=== PATIENT | male | born 1945 | race Caucasian/White ===

== ENCOUNTER 2018-08-29 12:26 | Observation (INO) ==
[2018-08-29] MEDS ORDERED: 0.9 % Sodium Chloride 1,000 ML IVC ONE (12:27)
--- NOTE | 2018-08-29 12:29 | Emergency Department Note ---
Disposition Clinical Impression: Hyperglycemia, Generalized weakness Disposition: Admitted As Inpatient Condition: Fair Referrals: NONE,PCP [Non-Partnered Physician] - Forms: ED Satisfaction Letter, Work/School Release Time of Disposition: 13:09 Weakness HPI - General Chief complaint: ED General Medical Stated complaint: WEAKNESS Time Seen by Provider: 08/29/18 12:26 Source: patient, EMS Mode of arrival: EMS Limitations: no limitations Nursing Notes Reviewed: Yes Vital Signs Reviewed: Yes - History of Present Illness HPI Narrative: Patient reports a general weakness and some dizziness with standing and walking. This is been going on for 2 weeks and he has been having difficulty with 24- hour care of his live-in partner who has dementia area reports that he has not had much time to eat or get all of his medicines. He has not been able to leave to get medical care. He called his sister who is out of state to see if she co uld come and help. Sister called job and family services to do a home check and found that they were not able to care for themselves at this time and has had both transported in for evaluation. Patient denies any pain. He denies headache, visual changes or difficulty with mentation or speech. Denies cough or shortness of breath. Denies abdominal pain, nausea, vomiting or diarrhea. He is not having localized weakness. He does report increased thirst but denies increased urinary frequency. The weather has been hot but they do have air conditioning. He states he just is too weak to take care at himself and his partner. Indicates that he is entirely worn out, sleep deprived is not getting adequate food or medicines at this point. Pt Subjective Complaint: generalized weakness/fatigue Onset (ago): week(s) (2) - Related Data Home Medications Medication Instructions Recorded Confirmed Insulin DETEMIR [Levemir] 60 unit SQ HS 12/11/14 12/31/14 Insulin ASPART [NovoLOG] 20 unit SQ TIDWM 12/31/14 12/31/14 Previous Rx's Medication Instructions Recorded Aspirin 81 mg PO DAILY #30 tab.chew 12/14/14 Atorvastatin [Lipitor] 80 mg PO HS #30 tablet 12/14/14 Clopidogrel [Plavix] 75 mg PO DAILY #30 tablet 12/14/14 Lisinopril [Zestril] 2.5 mg PO DAILY #30 tablet 12/14/14 Nitroglycerin 0.4 mg SL Q5MIN PRN #30 tab.subl 12/14/14 Aspirin Enteric Coated [Aspirin EC] 81 mg PO DAILY tablet. 01/07/15 Metoprolol [Lopressor] 12.5 mg PO BID #30 tablet 01/07/15 OxyCODONE/APAP 5/325 [Percocet 1 each PO Q4HR PRN #50 tablet 01/07/15 5/325] Allergies Allergy/AdvReac Type Severity Reaction Status Date / Time No Known Allergies Allergy Verified 12/11/14 15:10 All systems ED: reviewed and negative except as stated. Past Medical History - Past Medical History Attestation: Yes The following information was validated with the patient. Source: patient, old records reviewed, nursing notes reviewed Medical history: Reports: coronary artery disease, diabetes, hyperlipidemia. Denies: hypertension, thyroid disease Surgical history: Reports: appendectomy, coronary bypass (CABG) (2014), orthopedic, other Psychiatric history: Reports: no psych history - Social History Smoking Status: Never smoker Smokeless Tobacco Status: No Alcohol use: Reports: none Drug use: Reports: none Physical Exam - General Limitations: no limitations General appearance: alert, in no apparent distress - Head Head exam: atraumatic, normocephalic, normal inspection - Eye Eye exam: Present: normal appearance, PERRL, EOMI. Absent: scleral icterus, conjunctival injection - ENT ENT exam: normal exam, normal oropharynx, mucous membranes moist - Neck Neck exam: Present: normal inspection, full ROM, trachea midline - Chest Chest inspection: Present: normal inspection, symmetric chest wall rise - Respiratory Respiratory exam: Present: normal lung sounds bilaterally. Absent: respiratory distress, wheezes, prolonged expiratory phase - Cardiovascular Cardiovascular exam: Present: regular rate, normal rhythm, normal heart sounds. Absent: tachycardia - Abdominal Exam Abdominal exam: Present: soft, Non-Tender, normal bowel sounds. Absent: tenderness, distention, guarding, rebound, rigidity, mass - Extremities Exam Extremities exam: Present: normal inspection, full ROM, normal capillary refill. Absent: tenderness, pedal edema, calf tenderness - Expanded Lower Extremity Exam Neurovascular/Tendon exam: Present: normal capillary refill. Absent: motor deficit, sensory deficit, tendon deficit Gait: not tested/not observed - Back Exam Back exam: Present: normal inspection, full ROM. Absent: tenderness - Neurological Exam Neurological exam: Present: alert, oriented X3, CN II-XII intact. Absent: motor sensory deficit - Psychiatric Psychiatric exam: Present: normal affect, normal mood. Absent: agitated, anxious - Skin Skin exam: Present: warm, dry, intact, normal color, pallor. Absent: cyanosis, diaphoresis Course Course Narrative: Patient has history of generalized weakness. His thirsty and is started on some oral fluids as well as IV fluids. His Accu-Chek is 540 and insulin has been administered. Basic laboratories and EKG have been ordered as well as a urinalysis to evaluate for causes of weakness. He will likely need observation in the hospital with addiction social worker consultation upon completion of testing. 1315: With return of all testing except urinalysis, care is discussed with Dr. Romano and verbal orders have been obtained for his continued observation, hydration and following of his diabetic status. Vital Signs Temperature 99.1 F 08/29/18 12:35 Pulse Rate 89 08/29/18 12:35 Respiratory Rate 22 08/29/18 12:35 Blood Pressure 149/95 08/29/18 12:35 O2 Sat by Pulse Oximetry 99 08/29/18 12:35 Temperature 99.1 F 08/29/18 12:35 Pulse Rate 96 08/29/18 13:19 Respiratory Rate 22 08/29/18 13:19 Blood Pressure 158/104 08/29/18 13:19 O2 Sat by Pulse Oximetry 99 08/29/18 13:19 Oxygen Delivery Oxygen Delivery Room Air Weakness - Differential Diagnosis Differential Diagnosis: Likely: anemia, sepsis/infection, dehydration, metabolic - Medical Records Medical records reviewed: Yes I reviewed the patient's medical records. - Lab Data Lab results reviewed: Yes I reviewed the patient's lab results. Result diagrams: 08/29/18 12:39 08/29/18 12:39 Lab Results 08/29/18 08/29/18 08/29/18 Range/Units 12:39 12:39 12:39 WBC 4.6 (4.3-11.1) K/mcL RBC 4.38 (4.19-5.50) M/mcL Hgb 13.2 (12.9-16.9) g/dL Hct 39.2 (37.5-50.1) % MCV 89.5 (83.0-100.0) fL MCH 30.1 (28.0-33.3) pg MCHC 33.7 (31.6-35.5) g/dL RDW 11.9 (11.5-14.5) % Plt Count 232 (140-400) K/mcL MPV 10.7 (9.4-12.4) fL Immature Gran % 0.2 (0-4) % Seg Neutrophils % 70.5 % Lymphocytes % 18.9 % Monocytes % 9.3 % Eosinophils % 0.7 % Basophils % 0.4 % Neutrophils # 3.2 (1.6-8.9) K/mcL Lymphocytes # 0.9 (0.6-4.6) K/mcL Monocytes # 0.4 (0.0-1.3) K/mcL Eosinophils # 0.0 (0.0-0.6) K/mcL Basophils # 0.0 (0.0-0.2) K/mcL VBG pH (7.32-7.42) pH Units VBG pCO2 (41-51) mmHg VBG pO2 (25-50) mmHg VBG HCO3 (21-27) mEq/L Sodium 135 L (136-145) mEq/L Potassium 4.3 (3.5-5.1) mEq/L Chloride 99 (98-107) mEq/L Carbon Dioxide 23 (23-29) mEq/L BUN 34 H (8-23) mg/dL Creatinine 1.14 (0.70-1.30) mg/dL Est GFR ( Amer) > 60 (> 60) Est GFR (Non-Af Amer) > 60 (> 60) BUN/Creatinine Ratio 30 H (6-26) Glucose 577 H* (70-105) mg/dL Calculated Osmolality 314 H (280-300) Lactic Acid 1.0 (0.5-2.2) mmol/L Calcium 8.9 (8.6-10.3) mg/dL Total Bilirubin 0.9 (0.3-1.0) mg/dL AST 11 L (13-39) Units/L ALT 11 (7-52) Units/L Alkaline Phosphatase 58 (34-104) Units/L Troponin I < 0.03 (< 0.04) ng/mL Serum Total Protein 6.3 L (6.4-8.9) g/dL Albumin 3.6 (3.5-5.7) g/dL Globulin 2.7 (2.4-3.5) g/dL Albumin/Globulin Ratio 1.3 (1.1-2.2) Beta-Hydroxybutyric Acd (0.02-0.27) mmol/L 08/29/18 08/29/18 Range/Units 12:39 12:46 WBC (4.3-11.1) K/mcL RBC (4.19-5.50) M/mcL Hgb (12.9-16.9) g/dL Hct (37.5-50.1) % MCV (83.0-100.0) fL MCH (28.0-33.3) pg MCHC (31.6-35.5) g/dL RDW (11.5-14.5) % Plt Count (140-400) K/mcL MPV (9.4-12.4) fL Immature Gran % (0-4) % Seg Neutrophils % % Lymphocytes % % Monocytes % % Eosinophils % % Basophils % % Neutrophils # (1.6-8.9) K/mcL Lymphocytes # (0.6-4.6) K/mcL Monocytes # (0.0-1.3) K/mcL Eosinophils # (0.0-0.6) K/mcL Basophils # (0.0-0.2) K/mcL VBG pH 7.30 L (7.32-7.42) pH Units VBG pCO2 44 (41-51) mmHg VBG pO2 30 (25-50) mmHg VBG HCO3 22 (21-27) mEq/L Sodium (136-145) mEq/L Potassium (3.5-5.1) mEq/L Chloride (98-107) mEq/L Carbon Dioxide (23-29) mEq/L BUN (8-23) mg/dL Creatinine (0.70-1.30) mg/dL Est GFR ( Amer) (> 60) Est GFR (Non-Af Amer) (> 60) BUN/Creatinine Ratio (6-26) Glucose (70-105) mg/dL Calculated Osmolality (280-300) Lactic Acid (0.5-2.2) mmol/L Calcium (8.6-10.3) mg/dL Total Bilirubin (0.3-1.0) mg/dL AST (13-39) Units/L ALT (7-52) Units/L Alkaline Phosphatase (34-104) Units/L Troponin I (< 0.04) ng/mL Serum Total Protein (6.4-8.9) g/dL Albumin (3.5-5.7) g/dL Globulin (2.4-3.5) g/dL Albumin/Globulin Ratio (1.1-2.2) Beta-Hydroxybutyric Acd > 2.00 H (0.02-0.27) mmol/L - EKG Data EKG attestation: Yes I reviewed and interpreted this EKG. EKG shows normal: sinus rhythm, axis, intervals, QRS complexes, ST-T waves Rate: normal (90) Interpretation: no acute changes, nonspecific ST-T wave changes
[2018-08-29] MEDS ORDERED: Insulin Regular, Human 100 UNIT/ML SQ ONE (12:42)
[2018-08-29 12:46] LABS: Basophils % 0.4 %; Eosinophils % 0.7 %; Hematocrit 39.2 % (37.5-50.1); Hemoglobin 13.2 g/dL (12.9-16.9); Immature Granulocytes % 0.2 % (0-4); Lymphocytes # 0.9 K/mcL (0.6-4.6); Lymphocytes % 18.9 %; Mean Corpuscular HGB Conc 33.7 g/dL (31.6-35.5); Mean Corpuscular Hemoglobin 30.1 pg (28.0-33.3); Mean Corpuscular Volume 89.5 fL (83.0-100.0); Mean Platelet Volume 10.7 fL (9.4-12.4); Monocytes # 0.4 K/mcL (0.0-1.3); Monocytes % 9.3 %; Neutrophils # 3.2 K/mcL (1.6-8.9); Platelet Count 232 K/mcL (140-400); Red Blood Count 4.38 M/mcL (4.19-5.50); Red Cell Distribution Width 11.9 % (11.5-14.5); Segmented Neutrophils % 70.5 %; White Blood Count 4.6 K/mcL (4.3-11.1)
[2018-08-29 12:49] LABS: VBG HCO3 22 mEq/L (21-27); VBG PCO2 44 mmHg (41-51); VBG PO2 30 mmHg (25-50)
[2018-08-29 13:05] LABS: Alanine Aminotransferase 11 Units/L (7-52); Albumin 3.6 g/dL (3.5-5.7); Albumin/Globulin Ratio 1.3 (1.1-2.2); Alkaline Phosphatase 58 Units/L (34-104); Aspartate Amino Transferase 11 Units/L (13-39); BUN/Creatinine Ratio 30 (6-26); Bilirubin,Total 0.9 mg/dL (0.3-1.0); Blood Urea Nitrogen 34 mg/dL (8-23); Calcium 8.9 mg/dL (8.6-10.3); Carbon Dioxide 23 mEq/L (23-29); Chloride 99 mEq/L (98-107); Globulin 2.7 g/dL (2.4-3.5); Glucose 577 mg/dL (70-105); Osmolality,Calculated 314 (280-300); Potassium 4.3 mEq/L (3.5-5.1); Sodium 135 mEq/L (136-145); Total Protein 6.3 g/dL (6.4-8.9); eGFR For African Americans > 60 (> 60); eGFR For Non-African Americans > 60 (> 60)
[2018-08-29 13:08] LABS: Troponin I < 0.03 ng/mL (< 0.04)
[2018-08-29] MEDS ORDERED: 0.9 % Sodium Chloride 1,000 ML IVC SCH ×3 (14:00→17:01)
[2018-08-29 14:06] LABS: Bilirubin,Urine Negative (Negative); Blood,Urine Trace-intact (Negative); Clarity,Urine Slightly Cloudy (Clear); Color,Urine Yellow (Yellow); Glucose,Urine (UA) 500 mg/dL (Normal); Ketones,Urine 40 mg/dL (Negative); Leukocyte Esterase,Urine Small (Negative); Nitrite,Urine Negative (Negative); Protein,Urine Trace mg/dL (Neg-Trace); Urobilinogen,Urine Normal (Normal)
[2018-08-29 14:13] LABS: Bacteria,Urine Moderate per hpf (None-Few); RBC,Urine 0-3 per hpf (0-3); Squamous Epithelial Cell,Urine Many per lpf (None-Few); WBC,Urine 30-50 per hpf (0-3)
[2018-08-29] MEDS ORDERED: cefTRIAXone 2,000 MG in Water for inj. (sterile) 20 ML IVPB ONE (15:56)
--- NOTE | 2018-08-29 16:13 | Electrocardiograph Report ---
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
[2018-08-29] MEDS ORDERED: D5% in Water 1,000 ML IVC PRN (17:01)
[2018-08-29] MEDS ORDERED: MOM Conc 10 ML UD.LIQ PO PRN (17:01)
[2018-08-29] MEDS ORDERED: Dextrose Gel 15 GM/37.5 ML TUBE PO PRN ×2 (17:01)
[2018-08-29] MEDS ORDERED: Mag Hydrox/Al Hydrox/Simeth 30 ML UDC PO PRN (17:01)
[2018-08-29] MEDS ORDERED: *HR* Dextrose 50 % in Water (Vial) 50 ML VIAL IVP PRN (17:01)
[2018-08-29] MEDS ORDERED: Naloxone 0.4 MG/ML INJ IVP PRN (17:01)
[2018-08-29] MEDS ORDERED: Ondansetron ODT 4 MG TAB.RAPDIS SL PRN (17:01)
[2018-08-29] MEDS: Insulin LISPRO 300 UNITS/3 ML VIAL SQ SCH (17:39)
[2018-08-29 21:20] LABS: Estimated Average Glucose 392 mg/dl
[2018-08-30] MEDS: Insulin LISPRO 300 UNITS/3 ML VIAL SQ SCH ×4 (07:57→21:36)
[2018-08-30 07:58] LABS: BUN/Creatinine Ratio 25 (6-26); Blood Urea Nitrogen 20 mg/dL (8-23); Calcium 8.4 mg/dL (8.6-10.3); Carbon Dioxide 26 mEq/L (23-29); Chloride 100 mEq/L (98-107); Glucose 274 mg/dL (70-105); Osmolality,Calculated 290 (280-300); Potassium 3.8 mEq/L (3.5-5.1); Sodium 134 mEq/L (136-145); eGFR For African Americans > 60 (> 60); eGFR For Non-African Americans > 60 (> 60)
--- NOTE | 2018-08-30 16:17 | Internal Med History&Physical ---
Date of Encounter: 08/30/18 Time of Encounter: 15:50 Assessment and Plan (1) Hyperglycemia Current visit: Yes Status: Acute Blood sugar was 577 MG/DL in emergency room. He has been started on IV fluids and Accu-Cheks with SSI. Basal insulin will also be given. (2) Diabetes mellitus Current visit: No Status: Chronic Poorly controlled. Hemoglobin A1c was 15.3% in emergency room. Rx as above. 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 (4) CAD (coronary artery disease) Current visit: No Status: Acute Continue aspirin, Plavix, Lipitor, and metoprolol. Qualifiers: Coronary Disease-Associated Artery/Lesion type: [place] artery [place] vs. transplanted heart: [place] heart Associated angina: without angina Qualified Code(s): I25.10 - Atherosclerotic heart disease of [place] coronary artery without angina pectoris (5) Generalized weakness Current visit: Yes Status: Acute PT and OT evaluations have been ordered. Internal Medicine - H&P: HPI Chief complaint: Weakness Admitted From: Emergency Dept Plans for Post Hospital Care: Home History of present illness: Mr. Estrada is a 72 year old male who came to emergency room stating he has had progressive weakness over the past 2 weeks. He denies fevers chills vomiting diarrhea pain or cough. He states his oral intake has been poor. He was evaluated in emergency room and was found to have significant hyperglycemia with acute renal insufficiency. He was admitted to Medr floor for ongoing care needs. He states he feels slightly improved at the present time but still feels weak. He was diagnosed with DM 2 approximately 2007. He is on Lipitor but denies hyperlipidemia. He denies known thyroid disease. Past Med Surg Social Fam HX - Past Medical History Medical history: coronary artery disease, diabetes, hyperlipidemia Additional medical history: see attached records Psychiatric history: no psych history - Past Surgical History Surgical History: appendectomy, coronary bypass (CABG), orthopedic, other - Social History Smoking Status: Never smoker Smokeless Tobacco Status: No Alcohol use: none Drug use: none - Family History Father Living Status: Hx Family Cardiac Disorders: Yes (MOTHER) Hx Family Respiratory Disorders: No Hx Family Cancer: No Hx Family GI Disorders: No Hx Family Endocrine Disorder: No Hx Family Neuromuscular Disorders: No Hx Family Neurologic Disorders: No Hx Family HEENT Disorders: No Hx Family Autoimmune Disorders: No Internal Medicine - H&P: Meds Insulin DETEMIR [Levemir] 60 unit SQ HS 12/11/14 [History] Aspirin 81 mg PO DAILY #30 tab.chew 12/14/14 [Rx] Atorvastatin [Lipitor] 80 mg PO HS #30 tablet 12/14/14 [Rx] Clopidogrel [Plavix] 75 mg PO DAILY #30 tablet 12/14/14 [Rx] Lisinopril [Zestril] 2.5 mg PO DAILY #30 tablet 12/14/14 [Rx] Nitroglycerin 0.4 mg SL Q5MIN PRN #30 tab.subl 12/14/14 [Rx] Insulin ASPART [NovoLOG] 20 unit SQ TIDWM 12/31/14 [History] Aspirin Enteric Coated [Aspirin EC] 81 mg PO DAILY tablet. 01/07/15 [Rx] Metoprolol [Lopressor] 12.5 mg PO BID #30 tablet 01/07/15 [Rx] OxyCODONE/APAP 5/325 [Percocet 5/325] 1 each PO Q4HR PRN #50 tablet 01/07/15 [ Rx] Allergy/AdvReac Type Severity Reaction Status Date / Time No Known Allergies Allergy Verified 12/11/14 15:10 All Systems PM: A 10-system review of systems was performed and is negative for pertinent findings except as documented above in the HPI. Review of systems: Gen.: He states his weight has decreased approximately 30 pounds in the past 18 months with most of the weight loss occurring in the last 3 months. He states his appetite and oral intake have not changed significantly until 2 weeks ago. Cardiovascular: He has history of hypertension and known ASHD status post GA approximately 2009. He reports he had 5 stents placed in the past. After stent placement he reports he had 5 vessel CABG 12/31/2014 with SOTO to LAD, SVG to PDA and posterior lateral branch of RCA, and SVG to intermediate branch and OMB of circumflex. He has dyspnea on exertion. He denies heart failure DVT or pulmonary embolus. Echocardiogram 12/11/2014 showed LVEF of 55% with no significant valvular abnormalities. Interventricular septum and posterior wall thickness measurements were normal at 1.00 cm each. E/A ratio was 0.9. Respiratory: He is a lifelong nonsmoker and denies chronic lung disease. GI: He denies disorders of his liver gallbladder or exocrine pancreas : He denies hematuria dysuria or kidney stones Neurologic: He denies large distribution strokes or seizures. Endocrine: He was diagnosed with DM 2 approximately 2007. He denies thyroid disease. He is on Lipitor for secondary prevention from ASHD but denies known hyperlipidemia. Hematology/oncology: He denies blood disorders cancers or anemia Psychiatric: He denies anxiety depression or mental health issues [place] skeletal: He denies arthritis gout or other bone joint or muscle disorders. - Constitutional Vitals: Temp Pulse Resp BP Pulse Ox 98.2 F 81 16 162/90 98 08/30/18 15:07 08/30/18 15:07 08/30/18 15:07 08/30/18 15:07 08/30/18 15:07 Exam: Gen.: He is a well-developed well-nourished male resting comfortably in bed who appears in no severe distress at present time HEENT: Head is atraumatic and normocephalic. Eyes: EOMI. There is no scleral icterus. Mouth: Mucosa is moist. Neck: Supple and nontender. There is no thyromegaly or adenopathy noted. Heart: Regular without murmurs gallops or ectopics Lungs: No wheezes or crackles are heard. Abdomen: Soft and nontender. No masses or guarding are noted. Extremities: There is no cyanosis edema or clubbing noted. Dorsalis pedis and posterior tibial pulses are trace to 1+ palpable bilaterally. He has several shallow ulcers with eschars on his fingers and lower legs. Neurologic: Mental status: He is talkative and a fair to good historian. He does not remember some details of his past history. Cranial nerves: Smile is symmetric. Forehead wrinkles bilaterally. Tongue protrudes midline. EOMI. Motor: There is no pronator drift. Cerebellar: Finger to nose is intact porsche aterally. Skin: Warm and dry Internal Med - H&P Results - Labs CBC & Chem 7: 08/29/18 12:39 08/30/18 07:08 Labs: BMP 08/30/18 07:08 Sodium 134 L Potassium 3.8 Chloride 100 Carbon Dioxide 26 BUN 20 Creatinine 0.81 Glucose 274 H Calcium 8.4 L - ABG Interpretation ABG results: 08/29/18 12:46 VBG pH 7.30 L VBG pCO2 44 VBG pO2 30 VBG HCO3 22
[2018-08-30] MEDS: Insulin DETEMIR 100 UNIT/ML X5UNITS SQ SCH (21:32)
[2018-08-31 06:01] LABS: Basophils % 0.6 %; Eosinophils # 0.1 K/mcL (0.0-0.6); Eosinophils % 2.7 %; Hematocrit 37.9 % (37.5-50.1); Hemoglobin 13.2 g/dL (12.9-16.9); Immature Granulocytes % 0.4 % (0-4); Lymphocytes # 1.2 K/mcL (0.6-4.6); Lymphocytes % 23.9 %; Mean Corpuscular HGB Conc 34.8 g/dL (31.6-35.5); Mean Corpuscular Hemoglobin 30.3 pg (28.0-33.3); Mean Corpuscular Volume 87.1 fL (83.0-100.0); Mean Platelet Volume 11.2 fL (9.4-12.4); Monocytes # 0.5 K/mcL (0.0-1.3); Neutrophils # 3.2 K/mcL (1.6-8.9); Platelet Count 193 K/mcL (140-400); Red Blood Count 4.35 M/mcL (4.19-5.50); Red Cell Distribution Width 11.7 % (11.5-14.5); Segmented Neutrophils % 62.4 %; White Blood Count 5.2 K/mcL (4.3-11.1)
[2018-08-31 06:28] LABS: BUN/Creatinine Ratio 18 (6-26); Blood Urea Nitrogen 15 mg/dL (8-23); Calcium 8.9 mg/dL (8.6-10.3); Carbon Dioxide 30 mEq/L (23-29); Chloride 99 mEq/L (98-107); Glucose 225 mg/dL (70-105); Osmolality,Calculated 288 (280-300); Potassium 4.3 mEq/L (3.5-5.1); Sodium 135 mEq/L (136-145); eGFR For African Americans > 60 (> 60); eGFR For Non-African Americans > 60 (> 60)
[2018-08-31 06:56] LABS: Thyroid Stimulating Hormone 0.877 mcIU/mL (0.340-5.600)
[2018-08-31] MEDS: Insulin LISPRO 300 UNITS/3 ML VIAL SQ SCH ×4 (08:26→21:03)
[2018-08-31] MEDS: Insulin DETEMIR 100 UNIT/ML X5UNITS SQ SCH ×2 (08:26→21:03)
--- NOTE | 2018-08-31 12:00 | Internal Med Progress Note ---
Date of Encounter: 08/31/18 Time of Encounter: 11:54 - Assessment and plan (1) Hyperglycemia Current Visit: Yes Status: Acute Assessment and plan: August 31. Blood sugars significantly improved. Home medication list reviewed showing Levemir 60 units daily at bedtime. Increase Levemir dose to 15 units twice a day and continue Accu-Cheks with SSI. (2) Diabetes mellitus Current Visit: No Status: Chronic Assessment and plan: August 31. 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 TSH was normal at 0.877. CT of chest, abdomen, and pelvis showed no worrisome pathology. (4) CAD (coronary artery disease) Current Visit: No Status: Acute Assessment and plan: August 31. Continue aspirin, Plavix, Lipitor, and metoprolol. Qualifiers: Coronary Disease-Associated Artery/Lesion type: [place] artery [place] vs. transplanted heart: [place] heart Associated angina: without angina Qualified Code(s): I25.10 - Atherosclerotic heart disease of [place] coronary artery without angina pectoris (5) Generalized weakness Current Visit: Yes Status: Acute Assessment and plan: August 31. Continue PT/OT intervention. (6) Hypertension Current Visit: Yes Status: Chronic Assessment and plan: August 31. Home medication list reviewed. Restart metoprolol and lisinopril but at higher doses. Qualifiers: Hypertension type: essential hypertension Qualified Code(s): I10 - Esse ntial (primary) hypertension - Subjective Interval history: August 31. He has no new complaints and feels better. - Constitutional Vitals: Temp Pulse Resp BP Pulse Ox 98.5 F 80 18 156/101 99 08/31/18 06:54 08/31/18 06:54 08/31/18 06:54 08/31/18 06:54 08/31/18 06:54 Exam: He is resting comfortably in bed and appears in no acute distress. His affect is overall cheerful. I reviewed his medications, lab results, and CT report. Internal Medicine: Result - Labs CBC & Chem 7: 08/31/18 05:22 08/31/18 05:22 Labs: Short CBC 08/31/18 Range/Units 05:22 WBC 5.2 (4.3-11.1) K/mcL Hgb 13.2 (12.9-16.9) g/dL Hct 37.9 (37.5-50.1) % Plt Count 193 (140-400) K/mcL Neutrophils # 3.2 (1.6-8.9) K/mcL BMP 08/31/18 05:22 Sodium 135 L Potassium 4.3 Chloride 99 Carbon Dioxide 30 H BUN 15 Creatinine 0.83 Glucose 225 H Calcium 8.9 - Impressions Impressions Abdomen/Pelvis CT 08/30/18 17:22 IMPRESSION: 1. No definite acute process within the chest, abdomen, or pelvis. 2. Stable mild chronic elevation of the left hemidiaphragm with associated mild compressive atelectasis within the lingula and left lower lobe. 3. No definite acute process within the abdomen or pelvis. 4. Nonspecific 1.4 cm exophytic soft tissue attenuation nodular lesion off the posterior aspect of the left kidney upper pole, most likely a benign hyperdense cyst. However, suggest further characterization with a pre and postcontrast renal mass protocol CT or MRI study. 5. Cholelithiasis with mild gallbladder distention. Additionally, there is mild nonspecific distention of the common bile duct, without demonstrable cause. If there is a history of elevated LFTs, consider further characterization with a follow-up MRCP study. 6. Mild prostatomegaly. D/ / 08/30/2018 19:48:10 Aaron Uriostegui MD / [email or web address] Interpreting Provider: Aaron Uriosetgui MD Chest CT 08/30/18 17:22 IMPRESSION: 1. No definite acute process within the chest, abdomen, or pelvis. 2. Stable mild chronic elevation of the left hemidiaphragm with associated mild compressive atelectasis within the lingula and left lower lobe. 3. No definite acute process within the abdomen or pelvis. 4. Nonspecific 1.4 cm exophytic soft tissue attenuation nodular lesion off the posterior aspect of the left kidney upper pole, most likely a benign hyperdense cyst. However, suggest further characterization with a pre and postcontrast renal mass protocol CT or MRI study. 5. Cholelithiasis with mild gallbladder distention. Additionally, there is mild nonspecific distention of the common bile duct, without demonstrable cause. If there is a history of elevated LFTs, consider further characterization with a follow-up MRCP study. 6. Mild prostatomegaly. D/ / 08/30/2018 19:48:10 Aaron Uriostegui MD / tre Interpreting Provider: Aaron Uriostegui MD Consult Discharge Plan - Plan Referrals: Vane Muniz, BOX FABRICATOR [Primary Care Provider] - 1 week
[2018-08-31] MEDS ORDERED: Insulin DETEMIR 100 UNIT/ML X5UNITS SQ SCH (21:00)
[2018-09-01] MEDS: Insulin LISPRO 300 UNITS/3 ML VIAL SQ SCH ×4 (07:46→19:35)
[2018-09-01] MEDS: Insulin DETEMIR 100 UNIT/ML X5UNITS SQ SCH ×2 (09:22→19:35)
--- NOTE | 2018-09-01 10:00 | Internal Med Progress Note ---
Date of Encounter: 09/01/18 Time of Encounter: 09:50 - Assessment and plan (1) Hyperglycemia Current Visit: Yes Status: Acute Assessment and plan: August 31. Blood sugars significantly improved. Home medication list reviewed showing Levemir 60 units daily at bedtime. Increase Levemir dose to 15 units twice a day and continue Accu-Cheks with SSI. September 01. Blood sugars further improved. Recheck labs in a.m. Anticipate discha rge home tomorrow if stable. (2) Diabetes mellitus Current Visit: No Status: Chronic Assessment and plan: August 31. As above Qualifiers: Diabetes mellitus type: type 2 Diabetes mellitus care home insulin use: with care home use Diabetes mellitus complication status: without complication Qualified Code(s): E11.9 - Type 2 diabetes mellitus without complications; Z79.4 - meterman (current) use of insulin (3) Weight loss Current Visit: Yes Status: Acute Assessment and plan: August 31. TSH was normal at 0.877. CT of chest, abdomen, and pelvis showed no worrisome pathology. (4) CAD (coronary artery disease) Current Visit: No Status: Acute Assessment and plan: August 31. Continue aspirin, Plavix, Lipitor, and metoprolol. Qualifiers: Coronary Disease-Associated Artery/Lesion type: [place] artery [place] vs. transplanted heart: [place] heart Associated angina: without angina Qualified Code(s): I25.10 - Atherosclerotic heart disease of [place] coronary artery without angina pectoris (5) Generalized weakness Current Visit: Yes Status: Acute Assessment and plan: August 31. Continue PT/OT intervention. (6) Hypertension Current Visit: Yes Status: Chronic Assessment and plan: August 31. Home medication list reviewed. Restart metoprolol and lisinopril but at higher doses. September 01. Blood pressures improved. Continue higher dose metoprolol and lisinopril. Qualifiers: Hypertension type: essential hypertension Qualified Code(s): I10 - Essential (primary) hypertension - Subjective Interval history: August 31. He has no new complaints and feels better. September 01. He has no complaints. Nursing staff reports he had verbal disagreement in his room last evening with his sister causing his significant other to become upset requiring a room change for her. He is now more calm and voices no concerns. - Constitutional Vitals: Temp Pulse Resp BP Pulse Ox 98.5 F 65 17 131/84 96 07/04/19 06:56 09/01/18 06:56 09/01/18 06:56 09/01/18 06:56 09/01/18 06:56 Exam: He is resting comfortably in bed and appears in no acute distress. He is appropriate in conversation. His affect is overall cheerful. I reviewed his medications and lab results. Internal Medicine: Result - Labs CBC & Chem 7: 08/31/18 05:22 08/31/18 05:22 - Impressions Impressions Abdomen/Pelvis CT 08/30/18 17:22 IMPRESSION: 1. No definite acute process within the chest, abdomen, or pelvis. 2. Stable mild chronic elevation of the left hemidiaphragm with associated mild compressive atelectasis within the lingula and left lower lobe. 3. No definite acute process within the abdomen or pelvis. 4. Nonspecific 1.4 cm exophytic soft tissue attenuation nodular lesion off the posterior aspect of the left kidney upper pole, most likely a benign hyperdense cyst. However, suggest further characterization with a pre and postcontrast renal mass protocol CT or MRI study. 5. Cholelithiasis with mild gallbladder distention. Additionally, there is mild nonspecific distention of the common bile duct, without demonstrable cause. If there is a history of elevated LFTs, consider further characterization with a follow-up MRCP study. 6. Mild prostatomegaly. D/ / 08/30/2018 19:48:10 Aaron Uriostegui MD / tre Interpreting Provider: Aaron Uriostegui MD Chest CT 08/30/18 17:22 IMPRESSION: 1. No definite acute process within the chest, abdomen, or pelvis. 2. Stable mild chronic elevation of the left hemidiaphragm with associated mild compressive atelectasis within the lingula and left lower lobe. 3. No definite acute process within the abdomen or pelvis. 4. Nonspecific 1.4 cm exophytic soft tissue attenuation nodular lesion off the posterior aspect of the left kidney upper pole, most likely a benign hyperdense cyst. However, suggest further characterization with a pre and postcontrast renal mass protocol CT or MRI study. 5. Cholelithiasis with mild gallbladder distention. Additionally, there is mild nonspecific distention of the common bile duct, without demonstrable cause. If there is a history of elevated LFTs, consider further characterization with a follow-up MRCP study. 6. Mild prostatomegaly. D/ / 08/30/2018 19:48:10 Aaron Uriostegui MD / tre Interpreting Provider: Aaron Uriostegui MD Consult Discharge Plan - Plan Referrals: Vane Muniz, [facility] [Primary Care Provider] - 1 week
[2018-09-02 05:58] LABS: Basophils % 0.5 %; Eosinophils # 0.1 K/mcL (0.0-0.6); Eosinophils % 2.3 %; Hematocrit 38.2 % (37.5-50.1); Hemoglobin 12.8 g/dL (12.9-16.9); Immature Granulocytes % 0.2 % (0-4); Lymphocytes # 1.4 K/mcL (0.6-4.6); Lymphocytes % 23.9 %; Mean Corpuscular HGB Conc 33.5 g/dL (31.6-35.5); Mean Corpuscular Hemoglobin 29.8 pg (28.0-33.3); Mean Corpuscular Volume 88.8 fL (83.0-100.0); Mean Platelet Volume 11.2 fL (9.4-12.4); Monocytes # 0.6 K/mcL (0.0-1.3); Monocytes % 10.3 %; Neutrophils # 3.8 K/mcL (1.6-8.9); Platelet Count 187 K/mcL (140-400); Red Cell Distribution Width 12.2 % (11.5-14.5); Segmented Neutrophils % 62.8 %
[2018-09-02 06:24] LABS: BUN/Creatinine Ratio 20 (6-26); Blood Urea Nitrogen 18 mg/dL (8-23); Calcium 8.8 mg/dL (8.6-10.3); Carbon Dioxide 30 mEq/L (23-29); Chloride 102 mEq/L (98-107); Glucose 165 mg/dL (70-105); Osmolality,Calculated 292 (280-300); Potassium 4.2 mEq/L (3.5-5.1); Sodium 138 mEq/L (136-145); eGFR For African Americans > 60 (> 60); eGFR For Non-African Americans > 60 (> 60)
[2018-09-02] MEDS: Insulin LISPRO 300 UNITS/3 ML VIAL SQ SCH ×2 (08:06→11:19)
[2018-09-02] MEDS: Insulin DETEMIR 100 UNIT/ML X5UNITS SQ SCH (09:23)
[2018-09-02 10:17] VITALS: BP 97/69
--- NOTE | 2018-09-02 11:16 | Discharge Summary ---
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 transplanted heart: [place] heart Associated angina: without angina Qualified Code(s): I25.10 - Atherosclerotic heart disease of [place] coronary artery w ithout angina pectoris (5) Generalized weakness Priority: Secondary Status: Acute (6) Hypertension Priority: Secondary Status: Chronic Qualifiers: Hypertension type: essential hypertension Qualified Code(s): I10 - Essential (primary) hypertension Hospital course: Mr. Estrada is a 72 year old male who came to emergency room stating he has had progressive weakness over the past 2 weeks. He denies fevers chills vomiting diarrhea pain or cough. He states his oral intake has been poor. He was evaluated in emergency room and was found to have significant hyperglycemia with acute renal insufficiency. He was admitted to [facility] floor for ongoing care needs. Initial orders were written by the emergency room physician. I saw him on August 30 and performed a history and physical. He was given IV fluids, basal insulin, and Accu-Cheks with SSI. Blood sugar showed improvement and ketosis resolved. He will be given reduced dose of Levemir at 15 units HS and start Novolin 70/30 20 units every morning to control daytime blood sugar elevations. His PCP can monitor and continue to adjust regimen as needed. Hemoglobin A1c returned significantly above desirable level at 15.3%. He admitted he was not compliant consistently with diet and insulin regimen. Home health services will be ordered to assist in monitoring. TSH returned normal at 0.877. Blood pressure returned to satisfactory range. He was given higher dose medication during hospitalization but will return to home doses at discharge. He will be discharged home today and follow with his PCP Darling Muniz CNP within 1 week. Home health services will be ordered. - Time Spent with Patient Total time spent providing and/or coordinating discharge services: - Discharge Medications Prescriptions: New Insulin NPH Hum/Reg Insulin Hm [Humulin 70/30 Kwikpen] 20 unit SQ QAM #1 insuln.pen Insulin DETEMIR [Levemir] 15 unit SQ HS #1 [id number] Continued Nitroglycerin 0.4 mg SL Q5MIN PRN #30 tab.subl PRN Reason: Chest Pain Aspirin 81 mg PO DAILY #30 tab.chew Atorvastatin [Lipitor] 80 mg PO HS #30 tablet Clopidogrel [Plavix] 75 mg PO DAILY #30 tablet Lisinopril [Zestril] 2.5 mg PO DAILY #30 tablet Aspirin Enteric Coated [Aspirin EC] 81 mg PO DAILY tablet. Metoprolol [Lopressor] 12.5 mg PO BID #30 tablet OxyCODONE/APAP 5/325 [Percocet 5/325] 1 each PO Q4HR PRN #50 tablet PRN Reason: Pain Discontinued Insulin ASPART [NovoLOG] 20 unit SQ TIDWM Insulin DETEMIR [Levemir] 60 unit SQ HS Home Medications: Aspirin 81 mg PO DAILY #30 tab.chew 12/14/14 [Rx] Atorvastatin [Lipitor] 80 mg PO HS #30 tablet 12/14/14 [Rx] Clopidogrel [Plavix] 75 mg PO DAILY #30 tablet 12/14/14 [Rx] Lisinopril [Zestril] 2.5 mg PO DAILY #30 tablet 12/14/14 [Rx] Nitroglycerin 0.4 mg SL Q5MIN PRN #30 tab.subl 12/14/14 [Rx] Aspirin Enteric Coated [Aspirin EC] 81 mg PO DAILY tablet. 01/07/15 [Rx] Metoprolol [Lopressor] 12.5 mg PO BID #30 tablet 01/07/15 [Rx] OxyCODONE/APAP 5/325 [Percocet 5/325] 1 each PO Q4HR PRN #50 tablet 01/07/15 [Rx] Insulin DETEMIR [Levemir] 15 unit SQ HS #1 [id number] 09/02/18 [Rx] Insulin NPH Hum/Reg Insulin Hm [Humulin 70/30 Kwikpen] 20 unit SQ QAM #1 insuln.pen 09/02/18 [Rx] Allergies/Adverse Reactions: Allergy/AdvReac Type Severity Reaction Status Date / Time No Known Allergies Allergy Verified 12/11/14 15:10 Date of admission: 08/29/18 15:46 Primary care physician: Vane Muniz CNP Consults: 08/29/18 17:01 Consult to Delivery Director [CONS] Routine Reason for SW Consult: Evaluate the home situation. Patient sent in by [employer] and family services due to his weakness and unable to care for self. 08/29/18 17:51 Consult to Occupational Therapy [CONS] Routine Comment: Evaluate, develop and implement POC Reason for Consult: Weakness Does patient have active BEDREST order?: No Is patient medically & hemodynamically stable?: Yes Patient assessed for mobility or mobilized this visit?: Yes Consult to Physical Therapy [CONS] Routine Comment: Evaluate, develop and implement POC Reason for Consult: Weakness Does patient have active BEDREST order?: No Is patient medically & hemodynamically stable?: Yes Patient assessed for mobility or mobilized this visit?: Yes - Constitutional Vitals: Temp Pulse Resp BP Pulse Ox 97.3 F L 78 20 97/69 99 09/02/18 10:17 09/02/18 10:17 09/02/18 10:17 09/02/18 10:17 09/02/18 10:17 - Patient Status Disposition: Home Health Service Condition: Fair - Discharge Instructions Follow Up With: Vane Muniz CNP [Primary Care Provider] - 1 week - Diet and Activity Activity: resume usual activities as tolerated Diet: diabetic diet
--- NOTE | 2018-09-02 11:31 | Physician Discharge Referral ---
Home Health/Hosp Referral Info Transfer to: Home Health Attending Provider: Juan Antonio Provider in Charge Post Discharge: PCP (Darling Muniz CNP) - Diagnosis (1) Hyperglycemia Priority: Primary Status: Acute (2) Diabetes mellitus Priority: Secondary Status: Chronic (3) Weight loss Priority: Secondary Status: Acute (4) CAD (coronary artery disease) Priority: Secondary Status: Chronic (5) Generalized weakness Priority: Secondary Status: Acute (6) Hypertension Priority: Secondary Status: Chronic - Respiratory Orders Smoking Cessation: Smoking cessation has been advised. For more information, call the [place] Tobacco Quit Line at 8-189-NNUC-NOW. - Diet/Nutrition Diet/Nutrition Orders: No Concentrated Sweets - Activity Activity Orders: Walker - Services Needed Following services are medically necessary services: Nursing, Home Health Aide, Physical Therapy, Occupational Therapy - Transfer Medications Prescriptions: Insulin NPH Hum/Reg Insulin Hm [Humulin 70/30 Kwikpen] 20 unit SQ QAM #1 insuln.pen Insulin DETEMIR [Levemir] 15 unit SQ HS #1 [id number] Home Medications: Aspirin 81 mg PO DAILY #30 tab.chew 12/14/14 [Rx] Atorvastatin [Lipitor] 80 mg PO HS #30 tablet 12/14/14 [Rx] Clopidogrel [Plavix] 75 mg PO DAILY #30 tablet 12/14/14 [Rx] Lisinopril [Zestril] 2.5 mg PO DAILY #30 tablet 12/14/14 [Rx] Nitroglycerin 0.4 mg SL Q5MIN PRN #30 tab.subl 12/14/14 [Rx] Aspirin Enteric Coated [Aspirin EC] 81 mg PO DAILY tablet. 01/07/15 [Rx] Metoprolol [Lopressor] 12.5 mg PO BID #30 tablet 01/07/15 [Rx] OxyCODONE/APAP 5/325 [Percocet 5/325] 1 each PO Q4HR PRN #50 tablet 01/07/15 [Rx] Insulin DETEMIR [Levemir] 15 unit SQ HS #1 [id number] 09/02/18 [Rx] Insulin NPH Hum/Reg Insulin Hm [Humulin 70/30 Kwikpen] 20 unit SQ QAM #1 insuln.pen 09/02/18 [Rx] Allergies/Adverse Reactions: Allergy/AdvReac Type Severity Reaction Status Date / Time No Known Allergies Allergy Verified 12/11/14 15:10 Certification: Further, I certify that my clinical findings support that this patient is ho mebound (i.e. absences from home require considerable and taxing effort and are for medical reasons or jehovah's witness services or infrequently or short duration when for other reasons) because: Homebound Reason: Leaving home requires considerable and taxing effort due to condition (Poorly controlled DM 2, walking limitation) Attestation: My signature below is to certify that this patient is under my care and that I, or nurse practitioner, or a physician's senior agricultural assistant working with me, has a [id number] encounter with this patient.
== END 2018-09-02 14:45 | disposition home health service (06) ==
LOC: EMEROOPIK 12:26 → INPPIK 12:26
PROVIDERS: ADMIT Internal Medicine; ATTEND Internal Medicine

== ENCOUNTER 2019-02-12 20:42 | Observation (INO) ==
[2019-02-12 21:38] LABS: Basophils % 0.4 %; Eosinophils # 0.1 K/mcL (0.0-0.6); Eosinophils % 1.1 %; Hematocrit 36.7 % (37.5-50.1); Hemoglobin 12.7 g/dL (12.9-16.9); Immature Granulocytes % 0.3 % (0-4); Lymphocytes % 13.8 %; Mean Corpuscular HGB Conc 34.6 g/dL (31.6-35.5); Mean Corpuscular Hemoglobin 30.7 pg (28.0-33.3); Mean Corpuscular Volume 88.6 fL (83.0-100.0); Mean Platelet Volume 10.5 fL (9.4-12.4); Monocytes # 0.8 K/mcL (0.0-1.3); Monocytes % 10.2 %; Neutrophils # 5.4 K/mcL (1.6-8.9); Platelet Count 191 K/mcL (140-400); Red Blood Count 4.14 M/mcL (4.19-5.50); Red Cell Distribution Width 12.4 % (11.5-14.5); Segmented Neutrophils % 74.2 %; White Blood Count 7.3 K/mcL (4.3-11.1)
[2019-02-12 21:45] LABS: Prothrombin Time 11.2 Seconds (9.4-12.1)
[2019-02-12 21:51] LABS: Magnesium 2.1 mg/dL (1.6-2.6)
[2019-02-12 21:54] LABS: Alanine Aminotransferase 10 Units/L (7-52); Albumin/Globulin Ratio 1.4 (1.1-2.2); Alkaline Phosphatase 56 Units/L (34-104); Aspartate Amino Transferase 10 Units/L (13-39); BUN/Creatinine Ratio 18 (6-26); Bilirubin,Total 0.5 mg/dL (0.3-1.0); Blood Urea Nitrogen 23 mg/dL (8-23); Calcium 9.9 mg/dL (8.6-10.3); Carbon Dioxide 30 mEq/L (23-29); Chloride 98 mEq/L (98-107); Globulin 2.9 g/dL (2.4-3.5); Glucose 520 mg/dL (70-105); Osmolality,Calculated 305 (280-300); Potassium 4.3 mEq/L (3.5-5.1); Sodium 134 mEq/L (136-145); Total Protein 6.9 g/dL (6.4-8.9); eGFR For African Americans > 60 (> 60); eGFR For Non-African Americans 55 (> 60)
[2019-02-12] MEDS ORDERED: 0.9 % Sodium Chloride 1,000 ML IVC ONE (21:55)
[2019-02-12] MEDS ORDERED: Insulin Regular, Human 100 UNIT/ML IV ONE (21:55)
[2019-02-12 21:57] LABS: Troponin I < 0.03 ng/mL (< 0.04)
[2019-02-12 21:57] LABS: Bilirubin,Urine Negative (Negative); Blood,Urine Trace-intact (Negative); Clarity,Urine Slightly Cloudy (Clear); Glucose,Urine (UA) 500 mg/dL (Normal); Ketones,Urine Negative (Negative); Leukocyte Esterase,Urine Small (Negative); Nitrite,Urine Negative (Negative); PH,Urine 5.5 pH Units (5.0-8.0); Protein,Urine Negative (Neg-Trace); Specific Gravity,Urine <= 1.005 (1.010-1.025); Urobilinogen,Urine Normal (Normal)
[2019-02-12 21:58] LABS: Color,Urine Light Yellow (Yellow)
[2019-02-12 22:03] LABS: Bacteria,Urine Moderate per hpf (None-Few); Squamous Epithelial Cell,Urine Moderate per lpf (None-Few); WBC,Urine 30-50 per hpf (0-3)
[2019-02-12 22:10] LABS: Thyroid Stimulating Hormone 1.245 mcIU/mL (0.340-5.600)
[2019-02-12] MEDS ORDERED: Dextrose Gel 15 GM/37.5 ML TUBE PO PRN ×2 (23:06)
[2019-02-12] MEDS ORDERED: *HR* Dextrose 50 % in Water (Vial) 50 ML VIAL IVP PRN (23:06)
[2019-02-12] MEDS ORDERED: Ondansetron 4 MG/2 ML VIAL IVP PRN (23:06)
[2019-02-12] MEDS ORDERED: *HR* OxyCODONE Immed Rel 5 MG TABLET PO PRN (23:06)
[2019-02-12] MEDS ORDERED: D5% in Water 1,000 ML IVC PRN (23:06)
[2019-02-12] MEDS ORDERED: Naloxone 0.4 MG/ML INJ IVP PRN (23:06)
[2019-02-13 06:21] LABS: BUN/Creatinine Ratio 20 (6-26); Blood Urea Nitrogen 19 mg/dL (8-23); Calcium 9.2 mg/dL (8.6-10.3); Carbon Dioxide 29 mEq/L (23-29); Chloride 102 mEq/L (98-107); Glucose 302 mg/dL (70-105); Osmolality,Calculated 304 (280-300); Potassium 3.5 mEq/L (3.5-5.1); Sodium 140 mEq/L (136-145); eGFR For African Americans > 60 (> 60); eGFR For Non-African Americans > 60 (> 60)
[2019-02-13] MEDS: Insulin LISPRO 300 UNITS/3 ML VIAL SQ SCH ×3 (08:30→17:46)
[2019-02-13] MEDS: Gabapentin 300 MG CAPSULE PO SCH ×3 (08:32→20:22)
[2019-02-13] MEDS: Aspirin 81 MG TAB.CHEW PO SCH (08:32)
[2019-02-13] MEDS: cefTRIAXone 1,000 MG in 0.9 % Sodium Chloride Mini Bag 100 ML IVPB SCH (08:33)
[2019-02-13] MEDS ORDERED: Insulin DETEMIR 100 UNIT/ML X5UNITS SQ SCH (09:00)
[2019-02-13 09:51] LABS: Estimated Average Glucose 398 mg/dl
[2019-02-13] MEDS: Insulin DETEMIR 100 UNIT/ML X5UNITS SQ SCH (21:18)
[2019-02-14] MEDS: cefTRIAXone 1,000 MG in 0.9 % Sodium Chloride Mini Bag 100 ML IVPB SCH (08:18)
[2019-02-14] MEDS: Aspirin 81 MG TAB.CHEW PO SCH (08:18)
[2019-02-14] MEDS: Gabapentin 300 MG CAPSULE PO SCH ×3 (08:18→20:14)
[2019-02-14] MEDS: Insulin LISPRO 300 UNITS/3 ML VIAL SQ SCH ×3 (08:23→17:24)
[2019-02-14] MEDS: Insulin DETEMIR 100 UNIT/ML X5UNITS SQ SCH ×2 (08:24→20:15)
[2019-02-15] MEDS: cefTRIAXone 1,000 MG in 0.9 % Sodium Chloride Mini Bag 100 ML IVPB SCH (08:18)
[2019-02-15] MEDS: Insulin DETEMIR 100 UNIT/ML X5UNITS SQ SCH (08:18)
[2019-02-15] MEDS: Insulin LISPRO 300 UNITS/3 ML VIAL SQ SCH ×2 (08:19→11:12)
[2019-02-15] MEDS: Aspirin 81 MG TAB.CHEW PO SCH (08:19)
[2019-02-15] MEDS: Gabapentin 300 MG CAPSULE PO SCH (08:19)
[2019-02-15 14:57] VITALS: BP 154/96
== END 2019-02-15 15:58 | disposition other institution (70) ==
LOC: EMEROOPIK 20:42 → INPPIK 20:42 → SUATTDRO 22:31 → INPPIK 22:58
PROVIDERS: ADMIT Internal Medicine; ATTEND Family Medicine

== ENCOUNTER 2019-02-15 15:27 | Inpatient (IN) ==
[2019-02-15] MEDS ORDERED: D5% in Water 1,000 ML IVC PRN (15:53)
[2019-02-15] MEDS ORDERED: Dextrose Gel 15 GM/37.5 ML TUBE PO PRN ×2 (15:53)
[2019-02-15] MEDS ORDERED: *HR* Dextrose 50 % in Water (Vial) 50 ML VIAL IVP PRN (15:53)
[2019-02-15] MEDS: Insulin LISPRO 300 UNITS/3 ML VIAL SQ SCH ×2 (16:50→20:10)
[2019-02-15] MEDS: Gabapentin 300 MG CAPSULE PO SCH (20:10)
[2019-02-15] MEDS: Insulin DETEMIR 100 UNIT/ML X5UNITS SQ SCH (20:13)
[2019-02-16] MEDS: Aspirin Enteric Coated 81 MG Tablet PO SCH (08:59)
[2019-02-16] MEDS: Gabapentin 300 MG CAPSULE PO SCH ×3 (08:59→20:45)
[2019-02-16] MEDS: Insulin LISPRO 300 UNITS/3 ML VIAL SQ SCH ×5 (09:02→20:46)
[2019-02-16] MEDS: Insulin DETEMIR 100 UNIT/ML X5UNITS SQ SCH ×2 (09:02→20:45)
[2019-02-17] MEDS: Gabapentin 300 MG CAPSULE PO SCH ×3 (09:30→20:27)
[2019-02-17] MEDS: Aspirin Enteric Coated 81 MG Tablet PO SCH (09:35)
[2019-02-17] MEDS: Insulin DETEMIR 100 UNIT/ML X5UNITS SQ SCH ×2 (09:36→20:27)
[2019-02-17] MEDS: Insulin LISPRO 300 UNITS/3 ML VIAL SQ SCH ×7 (09:38→17:27)
[2019-02-18] MEDS: Aspirin Enteric Coated 81 MG Tablet PO SCH (08:40)
[2019-02-18] MEDS: Gabapentin 300 MG CAPSULE PO SCH ×3 (08:40→21:17)
[2019-02-18] MEDS: Insulin DETEMIR 100 UNIT/ML X5UNITS SQ SCH ×2 (08:43→21:17)
[2019-02-18] MEDS: Insulin LISPRO 300 UNITS/3 ML VIAL SQ SCH ×7 (08:43→21:16)
[2019-02-18] MEDS ORDERED: ALPRAZolam 0.25 MG TABLET PO ONE (15:02)
[2019-02-19] MEDS: Insulin LISPRO 300 UNITS/3 ML VIAL SQ SCH ×7 (09:50→20:49)
[2019-02-19] MEDS: Aspirin Enteric Coated 81 MG Tablet PO SCH (09:52)
[2019-02-19] MEDS: Gabapentin 300 MG CAPSULE PO SCH ×3 (09:52→20:48)
[2019-02-19] MEDS: Insulin DETEMIR 100 UNIT/ML X5UNITS SQ SCH ×2 (10:01→20:52)
[2019-02-20] MEDS: Aspirin Enteric Coated 81 MG Tablet PO SCH (09:37)
[2019-02-20] MEDS: Gabapentin 300 MG CAPSULE PO SCH ×3 (09:37→20:54)
[2019-02-20] MEDS: Insulin DETEMIR 100 UNIT/ML X5UNITS SQ SCH ×2 (09:38→20:57)
[2019-02-20] MEDS: Insulin LISPRO 300 UNITS/3 ML VIAL SQ SCH ×7 (09:38→20:56)
[2019-02-20 23:26] LABS: Bilirubin,Urine Negative (Negative); Blood,Urine Negative (Negative); Clarity,Urine Clear (Clear); Color,Urine Yellow (Yellow); Glucose,Urine (UA) 500 mg/dL (Normal); Ketones,Urine Negative (Negative); Leukocyte Esterase,Urine Negative (Negative); Nitrite,Urine Negative (Negative); PH,Urine 5.5 pH Units (5.0-8.0); Protein,Urine Negative (Neg-Trace); Specific Gravity,Urine 1.025 (1.010-1.025); Urobilinogen,Urine Normal (Normal)
[2019-02-21 06:37] LABS: Hematocrit 34.1 % (37.5-50.1); Mean Corpuscular HGB Conc 32.3 g/dL (31.6-35.5); Mean Corpuscular Hemoglobin 30.2 pg (28.0-33.3); Mean Corpuscular Volume 93.7 fL (83.0-100.0); Mean Platelet Volume 10.5 fL (9.4-12.4); Platelet Count 200 K/mcL (140-400); Red Blood Count 3.64 M/mcL (4.19-5.50); Red Cell Distribution Width 12.8 % (11.5-14.5); White Blood Count 4.9 K/mcL (4.3-11.1)
[2019-02-21 06:59] LABS: BUN/Creatinine Ratio 26 (6-26); Blood Urea Nitrogen 27 mg/dL (8-23); Calcium 8.8 mg/dL (8.6-10.3); Carbon Dioxide 31 mEq/L (23-29); Chloride 106 mEq/L (98-107); Glucose 253 mg/dL (70-105); Osmolality,Calculated 304 (280-300); Potassium 4.4 mEq/L (3.5-5.1); Sodium 140 mEq/L (136-145); eGFR For African Americans > 60 (> 60); eGFR For Non-African Americans > 60 (> 60)
[2019-02-21] MEDS: Insulin LISPRO 300 UNITS/3 ML VIAL SQ SCH ×7 (08:35→21:07)
[2019-02-21] MEDS: Insulin DETEMIR 100 UNIT/ML X5UNITS SQ SCH ×2 (08:35→21:07)
[2019-02-21] MEDS: Gabapentin 300 MG CAPSULE PO SCH ×3 (08:36→20:09)
[2019-02-21] MEDS: Aspirin Enteric Coated 81 MG Tablet PO SCH (08:36)
[2019-02-22] MEDS: Insulin LISPRO 300 UNITS/3 ML VIAL SQ SCH ×7 (08:31→20:13)
[2019-02-22] MEDS: Aspirin Enteric Coated 81 MG Tablet PO SCH (08:32)
[2019-02-22] MEDS: Insulin DETEMIR 100 UNIT/ML X5UNITS SQ SCH ×2 (08:32→20:08)
[2019-02-22] MEDS: Gabapentin 300 MG CAPSULE PO SCH ×3 (08:32→20:08)
[2019-02-23] MEDS: Aspirin Enteric Coated 81 MG Tablet PO SCH (09:14)
[2019-02-23] MEDS: Gabapentin 300 MG CAPSULE PO SCH ×3 (09:14→20:50)
[2019-02-23] MEDS: Insulin LISPRO 300 UNITS/3 ML VIAL SQ SCH ×7 (09:18→20:50)
[2019-02-23] MEDS: Insulin DETEMIR 100 UNIT/ML X5UNITS SQ SCH ×2 (09:18→20:50)
[2019-02-24 06:46] VITALS: BP 130/82
[2019-02-24] MEDS: Aspirin Enteric Coated 81 MG Tablet PO SCH (08:22)
[2019-02-24] MEDS: Insulin DETEMIR 100 UNIT/ML X5UNITS SQ SCH (08:23)
[2019-02-24] MEDS: Gabapentin 300 MG CAPSULE PO SCH ×2 (08:23→15:45)
[2019-02-24] MEDS: Insulin LISPRO 300 UNITS/3 ML VIAL SQ SCH ×4 (08:25→12:03)
== END 2019-02-24 18:00 | disposition home health service (06) | DRG 690 ==
LOC: INPPIK 16:01
PROVIDERS: ADMIT Family Medicine; ATTEND Family Medicine

== ENCOUNTER 2019-03-17 11:55 | Inpatient (IN) ==
[2019-03-17] MEDS ORDERED: 0.9 % Sodium Chloride 1,000 ML IVC ONE (12:31)
[2019-03-17] MEDS ORDERED: Insulin Regular, Human 100 UNIT/ML SQ ONE (12:31)
[2019-03-17 12:53] LABS: Basophils % 0.2 %; Eosinophils % 0.4 %; Hematocrit 37.9 % (37.5-50.1); Hemoglobin 12.4 g/dL (12.9-16.9); Immature Granulocytes % 0.2 % (0-4); Lymphocytes # 0.5 K/mcL (0.6-4.6); Lymphocytes % 10.9 %; Mean Corpuscular HGB Conc 32.7 g/dL (31.6-35.5); Mean Corpuscular Hemoglobin 30.6 pg (28.0-33.3); Mean Corpuscular Volume 93.6 fL (83.0-100.0); Mean Platelet Volume 10.2 fL (9.4-12.4); Monocytes # 0.4 K/mcL (0.0-1.3); Monocytes % 9.8 %; Neutrophils # 3.5 K/mcL (1.6-8.9); Platelet Count 220 K/mcL (140-400); Red Blood Count 4.05 M/mcL (4.19-5.50); Red Cell Distribution Width 12.8 % (11.5-14.5); Segmented Neutrophils % 78.5 %; White Blood Count 4.5 K/mcL (4.3-11.1)
[2019-03-17 12:54] LABS: VBG HCO3 22 mEq/L (21-27); VBG PCO2 45 mmHg (41-51); VBG PO2 24 mmHg (25-50)
[2019-03-17 13:12] LABS: Alanine Aminotransferase 19 Units/L (7-52); Albumin 3.8 g/dL (3.5-5.7); Albumin/Globulin Ratio 1.2 (1.1-2.2); Alkaline Phosphatase 76 Units/L (34-104); Aspartate Amino Transferase 17 Units/L (13-39); BUN/Creatinine Ratio 28 (6-26); Bilirubin,Direct 0.2 mg/dL (0.0-0.2); Bilirubin,Indirect 0.5 mg/dL (0.0-1.0); Bilirubin,Total 0.7 mg/dL (0.3-1.0); Blood Urea Nitrogen 30 mg/dL (8-23); Calcium 8.5 mg/dL (8.6-10.3); Carbon Dioxide 23 mEq/L (23-29); Chloride 102 mEq/L (98-107); Globulin 3.1 g/dL (2.4-3.5); Glucose 428 mg/dL (70-105); Lipase 4 Units/L (11-82); Osmolality,Calculated 302 (280-300); Potassium 4.2 mEq/L (3.5-5.1); Sodium 134 mEq/L (136-145); Total Protein 6.9 g/dL (6.4-8.9); eGFR For African Americans > 60 (> 60); eGFR For Non-African Americans > 60 (> 60)
[2019-03-17] MEDS ORDERED: Mag Hydrox/Al Hydrox/Simeth 30 ML UDC PO PRN (14:16)
[2019-03-17] MEDS ORDERED: Ondansetron 4 MG/2 ML VIAL IVP PRN (14:16)
[2019-03-17] MEDS ORDERED: Naloxone 0.4 MG/ML INJ IVP PRN (14:16)
[2019-03-17] MEDS ORDERED: *HR* Dextrose 50 % in Water (Vial) 50 ML VIAL IVP PRN (14:22)
[2019-03-17] MEDS ORDERED: D5% in Water 1,000 ML IVC PRN (14:22)
[2019-03-17] MEDS ORDERED: Dextrose Gel 15 GM/37.5 ML TUBE PO PRN ×2 (14:22)
[2019-03-17] MEDS: 0.9 % Sodium Chloride 1,000 ML IVC SCH (15:29)
[2019-03-17] MEDS: Gabapentin 300 MG CAPSULE PO SCH ×2 (15:29→20:39)
[2019-03-17] MEDS: Insulin LISPRO 300 UNITS/3 ML VIAL SQ SCH ×2 (17:11→20:39)
[2019-03-17 17:19] LABS: Estimated Average Glucose 312 mg/dl
[2019-03-17] MEDS: Insulin DETEMIR 100 UNIT/ML X5UNITS SQ SCH (20:43)
[2019-03-18] MEDS: 0.9 % Sodium Chloride 1,000 ML IVC SCH (02:58)
[2019-03-18] MEDS: *HR* Enoxaparin 40 MG/0.4 ML SYRINGE SQ SCH (05:46)
[2019-03-18] MEDS: Insulin LISPRO 300 UNITS/3 ML VIAL SQ SCH ×5 (08:40→20:41)
[2019-03-18] MEDS: Insulin DETEMIR 100 UNIT/ML X5UNITS SQ SCH (08:50)
[2019-03-18] MEDS: Aspirin Enteric Coated 81 MG Tablet PO SCH (08:50)
[2019-03-18 10:27] LABS: Hemoglobin 11.5 g/dL (12.9-16.9); Mean Corpuscular HGB Conc 32.9 g/dL (31.6-35.5); Mean Corpuscular Hemoglobin 30.9 pg (28.0-33.3); Mean Corpuscular Volume 94.1 fL (83.0-100.0); Mean Platelet Volume 10.9 fL (9.4-12.4); Platelet Count 221 K/mcL (140-400); Red Blood Count 3.72 M/mcL (4.19-5.50); Red Cell Distribution Width 13.1 % (11.5-14.5); White Blood Count 5.2 K/mcL (4.3-11.1)
[2019-03-18 10:47] LABS: BUN/Creatinine Ratio 29 (6-26); Blood Urea Nitrogen 28 mg/dL (8-23); Calcium 8.2 mg/dL (8.6-10.3); Carbon Dioxide 19 mEq/L (23-29); Chloride 109 mEq/L (98-107); Glucose 445 mg/dL (70-105); Osmolality,Calculated 307 (280-300); Sodium 136 mEq/L (136-145); eGFR For African Americans > 60 (> 60); eGFR For Non-African Americans > 60 (> 60)
[2019-03-18 11:49] LABS: Bilirubin,Urine Negative (Negative); Blood,Urine Trace-lysed (Negative); Clarity,Urine Clear (Clear); Color,Urine Yellow (Yellow); Glucose,Urine (UA) 500 mg/dL (Normal); Ketones,Urine Negative (Negative); Leukocyte Esterase,Urine Negative (Negative); Nitrite,Urine Negative (Negative); PH,Urine 5.5 pH Units (5.0-8.0); Protein,Urine Trace mg/dL (Neg-Trace); Specific Gravity,Urine 1.015 (1.010-1.025); Urobilinogen,Urine Normal (Normal)
[2019-03-18 11:55] LABS: Bacteria,Urine Few per hpf (None-Few); Hyaline Casts,Urine Few per lpf (None-Few); RBC,Urine 0-3 per hpf (0-3); Squamous Epithelial Cell,Urine Few per lpf (None-Few); WBC,Urine 0-3 per hpf (0-3)
[2019-03-18] MEDS: Lactobacillus 1 EACH CAP.SPRINK PO SCH ×2 (11:58→20:44)
[2019-03-18] MEDS: Gabapentin 300 MG CAPSULE PO SCH ×3 (11:58→20:44)
[2019-03-18] MEDS ORDERED: Insulin DETEMIR 100 UNIT/ML X5UNITS SQ SCH (21:00)
[2019-03-18] MEDS: *HR* Promethazine 25 MG/ML VIAL IVP PRN (23:07)
[2019-03-19] MEDS: *HR* OxyCODONE/APAP 5/325 TABLET PO PRN (02:00)
[2019-03-19] MEDS: Melatonin 3 MG TABLET PO PRN ×2 (02:00→21:00)
[2019-03-19] MEDS: Ondansetron 4 MG/2 ML VIAL IVP PRN (03:24)
[2019-03-19] MEDS: *HR* Enoxaparin 40 MG/0.4 ML SYRINGE SQ SCH (05:13)
[2019-03-19 07:42] LABS: Adenovirus F 40/41 PCR Not detected (Not detect); Astrovirus PCR Not detected (Not detect); C.difficile Toxin A/B Gene PCR Not detected (Not detect); Campylobacter by PCR Not detected (Not detect); Cryptosporidium by PCR Not detected (Not detect); Cyclospora cayetanensis PCR Not detected (Not detect); E. coli O157 by PCR Not detected (Not detect); Entamoeba histolytica PCR Not detected (Not detect); Enteroaggregative E.coli(EAEC) Not detected (Not detect); Enteropathogenic E.coli(EPEC) Not detected (Not detect); Enterotoxigenic E.coli (ETEC) Not detected (Not detect); Giardia lamblia PCR Not detected (Not detect); Norovirus GI/GII PCR DETECTED (Not detect); Plesiomonas shigelloides PCR Not detected (Not detect); Rotavirus A PCR Not detected (Not detect); Salmonella PCR Not detected (Not detect); Sapovirus PCR Not detected (Not detect); Shig/EnteroinvasiveE coli EIEC Not detected (Not detect); Shigalike tox-prod E coli STEC Not detected (Not detect); Vibrio PCR Not detected (Not detect); Vibrio cholerae PCR Not detected (Not detect); Yersinia enterocolitica PCR Not detected (Not detect)
[2019-03-19 08:32] LABS: Mean Corpuscular HGB Conc 32.4 g/dL (31.6-35.5); Mean Corpuscular Hemoglobin 30.4 pg (28.0-33.3); Mean Corpuscular Volume 93.9 fL (83.0-100.0); Mean Platelet Volume 10.2 fL (9.4-12.4); Platelet Count 229 K/mcL (140-400); Red Blood Count 3.62 M/mcL (4.19-5.50); White Blood Count 6.9 K/mcL (4.3-11.1)
[2019-03-19] MEDS: Aspirin Enteric Coated 81 MG Tablet PO SCH (08:47)
[2019-03-19] MEDS: Insulin DETEMIR 100 UNIT/ML X5UNITS SQ SCH ×2 (08:47→21:02)
[2019-03-19] MEDS: Lactobacillus 1 EACH CAP.SPRINK PO SCH ×2 (08:47→21:00)
[2019-03-19] MEDS: Gabapentin 300 MG CAPSULE PO SCH ×3 (08:47→21:00)
[2019-03-19] MEDS: Insulin LISPRO 300 UNITS/3 ML VIAL SQ SCH ×7 (09:00→21:00)
[2019-03-19] MEDS: 0.9 % Sodium Chloride 1,000 ML IV SCH ×3 (09:01→23:24)
[2019-03-19 09:46] LABS: BUN/Creatinine Ratio 33 (6-26); Blood Urea Nitrogen 39 mg/dL (8-23); Calcium 8.1 mg/dL (8.6-10.3); Carbon Dioxide 17 mEq/L (23-29); Chloride 112 mEq/L (98-107); Glucose 194 mg/dL (70-105); Osmolality,Calculated 297 (280-300); Potassium 4.1 mEq/L (3.5-5.1); Sodium 136 mEq/L (136-145); eGFR For African Americans > 60 (> 60); eGFR For Non-African Americans > 60 (> 60)
[2019-03-19] MEDS ORDERED: 0.9 % Sodium Chloride 1,000 ML IV ONE (14:41)
[2019-03-19 15:13] LABS: ABG Base Excess -8 mEq/L (-2 to 3); ABG HCO3 18 mEq/L (21-27); ABG Oxygen Saturation 96 % (95-98); ABG PCO2 37 mmHg (35-45); ABG PO2 93 mmHg (85-104); ABG TCO2 19 mEq/L (20-26)
[2019-03-20] MEDS: *HR* OxyCODONE/APAP 5/325 TABLET PO PRN (04:15)
[2019-03-20] MEDS: *HR* Enoxaparin 40 MG/0.4 ML SYRINGE SQ SCH (05:10)
[2019-03-20] MEDS: 0.9 % Sodium Chloride 1,000 ML IV SCH ×2 (06:15→09:37)
[2019-03-20 08:11] LABS: Basophils % 0.3 %; Eosinophils # 0.1 K/mcL (0.0-0.6); Eosinophils % 1.6 %; Hematocrit 33.8 % (37.5-50.1); Hemoglobin 10.5 g/dL (12.9-16.9); Immature Granulocytes % 0.3 % (0-4); Lymphocytes # 1.1 K/mcL (0.6-4.6); Lymphocytes % 17.3 %; Mean Corpuscular HGB Conc 31.1 g/dL (31.6-35.5); Mean Corpuscular Hemoglobin 30.9 pg (28.0-33.3); Mean Corpuscular Volume 99.4 fL (83.0-100.0); Mean Platelet Volume 10.2 fL (9.4-12.4); Monocytes # 0.7 K/mcL (0.0-1.3); Monocytes % 11.6 %; Neutrophils # 4.2 K/mcL (1.6-8.9); Platelet Count 182 K/mcL (140-400); Red Cell Distribution Width 12.9 % (11.5-14.5); Segmented Neutrophils % 68.9 %; White Blood Count 6.1 K/mcL (4.3-11.1)
[2019-03-20] MEDS: Insulin LISPRO 300 UNITS/3 ML VIAL SQ SCH ×7 (08:20→20:38)
[2019-03-20 08:26] LABS: Alanine Aminotransferase 9 Units/L (7-52); Albumin/Globulin Ratio 1.2 (1.1-2.2); Alkaline Phosphatase 54 Units/L (34-104); Aspartate Amino Transferase 8 Units/L (13-39); BUN/Creatinine Ratio 28 (6-26); Bilirubin,Total 0.2 mg/dL (0.3-1.0); Blood Urea Nitrogen 24 mg/dL (8-23); Calcium 7.9 mg/dL (8.6-10.3); Carbon Dioxide 17 mEq/L (23-29); Chloride 117 mEq/L (98-107); Globulin 2.6 g/dL (2.4-3.5); Glucose 112 mg/dL (70-105); Magnesium 1.8 mg/dL (1.6-2.6); Osmolality,Calculated 297 (280-300); Sodium 141 mEq/L (136-145); Total Protein 5.6 g/dL (6.4-8.9); eGFR For African Americans > 60 (> 60); eGFR For Non-African Americans > 60 (> 60)
[2019-03-20] MEDS: Insulin DETEMIR 100 UNIT/ML X5UNITS SQ SCH ×2 (08:31→20:38)
[2019-03-20] MEDS: Lactobacillus 1 EACH CAP.SPRINK PO SCH ×2 (08:32→20:38)
[2019-03-20] MEDS: Gabapentin 300 MG CAPSULE PO SCH ×3 (08:32→20:37)
[2019-03-20] MEDS: Aspirin Enteric Coated 81 MG Tablet PO SCH (08:32)
[2019-03-20] MEDS: Psyllium 1 PACKET POWD.PACK PO SCH (21:10)
[2019-03-21] MEDS: 0.9 % Sodium Chloride 1,000 ML IV SCH ×3 (01:36→17:15)
[2019-03-21 05:43] LABS: Basophils % 0.3 %; Eosinophils # 0.2 K/mcL (0.0-0.6); Eosinophils % 2.4 %; Hematocrit 31.3 % (37.5-50.1); Hemoglobin 10.3 g/dL (12.9-16.9); Immature Granulocytes % 0.3 % (0-4); Lymphocytes # 1.3 K/mcL (0.6-4.6); Lymphocytes % 19.8 %; Mean Corpuscular HGB Conc 32.9 g/dL (31.6-35.5); Mean Corpuscular Hemoglobin 30.6 pg (28.0-33.3); Mean Corpuscular Volume 92.9 fL (83.0-100.0); Mean Platelet Volume 9.8 fL (9.4-12.4); Monocytes # 0.8 K/mcL (0.0-1.3); Monocytes % 11.5 %; Neutrophils # 4.5 K/mcL (1.6-8.9); Platelet Count 192 K/mcL (140-400); Red Blood Count 3.37 M/mcL (4.19-5.50); Red Cell Distribution Width 12.8 % (11.5-14.5); Segmented Neutrophils % 65.7 %; White Blood Count 6.8 K/mcL (4.3-11.1)
[2019-03-21 06:03] LABS: Alanine Aminotransferase 9 Units/L (7-52); Albumin 3.1 g/dL (3.5-5.7); Albumin/Globulin Ratio 1.2 (1.1-2.2); Alkaline Phosphatase 57 Units/L (34-104); Aspartate Amino Transferase 9 Units/L (13-39); BUN/Creatinine Ratio 23 (6-26); Bilirubin,Total 0.3 mg/dL (0.3-1.0); Blood Urea Nitrogen 19 mg/dL (8-23); Calcium 7.9 mg/dL (8.6-10.3); Carbon Dioxide 21 mEq/L (23-29); Chloride 114 mEq/L (98-107); Globulin 2.5 g/dL (2.4-3.5); Glucose 142 mg/dL (70-105); Osmolality,Calculated 293 (280-300); Potassium 3.7 mEq/L (3.5-5.1); Sodium 139 mEq/L (136-145); Total Protein 5.6 g/dL (6.4-8.9); eGFR For African Americans > 60 (> 60); eGFR For Non-African Americans > 60 (> 60)
[2019-03-21] MEDS: *HR* Enoxaparin 40 MG/0.4 ML SYRINGE SQ SCH (06:22)
[2019-03-21] MEDS: Psyllium 1 PACKET POWD.PACK PO SCH ×3 (08:42→20:48)
[2019-03-21] MEDS: Lactobacillus 1 EACH CAP.SPRINK PO SCH ×2 (08:42→20:48)
[2019-03-21] MEDS: Gabapentin 300 MG CAPSULE PO SCH ×3 (08:42→20:48)
[2019-03-21] MEDS: Aspirin Enteric Coated 81 MG Tablet PO SCH (08:42)
[2019-03-21] MEDS: Insulin LISPRO 300 UNITS/3 ML VIAL SQ SCH ×8 (08:46→20:55)
[2019-03-21] MEDS: Insulin DETEMIR 100 UNIT/ML X5UNITS SQ SCH (08:51)
[2019-03-21] MEDS: *HR* Promethazine 25 MG/ML VIAL IVP PRN (23:35)
[2019-03-21] MEDS: *HR* OxyCODONE/APAP 5/325 TABLET PO PRN (23:37)
[2019-03-22] MEDS ORDERED: 0.9 % Sodium Chloride 1,000 ML IV SCH (03:30)
[2019-03-22] MEDS: *HR* Enoxaparin 40 MG/0.4 ML SYRINGE SQ SCH (04:50)
[2019-03-22 06:33] LABS: Basophils % 0.3 %; Eosinophils # 0.1 K/mcL (0.0-0.6); Eosinophils % 1.5 %; Hematocrit 32.9 % (37.5-50.1); Hemoglobin 11.1 g/dL (12.9-16.9); Immature Granulocytes % 0.3 % (0-4); Lymphocytes # 1.3 K/mcL (0.6-4.6); Lymphocytes % 19.8 %; Mean Corpuscular HGB Conc 33.7 g/dL (31.6-35.5); Mean Corpuscular Hemoglobin 30.4 pg (28.0-33.3); Mean Corpuscular Volume 90.1 fL (83.0-100.0); Mean Platelet Volume 10.7 fL (9.4-12.4); Monocytes # 0.7 K/mcL (0.0-1.3); Monocytes % 11.1 %; Neutrophils # 4.4 K/mcL (1.6-8.9); Platelet Count 206 K/mcL (140-400); Red Blood Count 3.65 M/mcL (4.19-5.50); Red Cell Distribution Width 12.6 % (11.5-14.5); White Blood Count 6.6 K/mcL (4.3-11.1)
[2019-03-22 06:53] LABS: Alanine Aminotransferase 12 Units/L (7-52); Albumin 3.2 g/dL (3.5-5.7); Albumin/Globulin Ratio 1.1 (1.1-2.2); Alkaline Phosphatase 69 Units/L (34-104); Aspartate Amino Transferase 14 Units/L (13-39); BUN/Creatinine Ratio 19 (6-26); Bilirubin,Total 0.3 mg/dL (0.3-1.0); Blood Urea Nitrogen 15 mg/dL (8-23); Calcium 8.3 mg/dL (8.6-10.3); Carbon Dioxide 19 mEq/L (23-29); Chloride 109 mEq/L (98-107); Globulin 2.8 g/dL (2.4-3.5); Glucose 303 mg/dL (70-105); Osmolality,Calculated 294 (280-300); Potassium 3.8 mEq/L (3.5-5.1); Sodium 136 mEq/L (136-145); eGFR For African Americans > 60 (> 60); eGFR For Non-African Americans > 60 (> 60)
[2019-03-22] MEDS: Psyllium 1 PACKET POWD.PACK PO SCH ×2 (07:59→15:49)
[2019-03-22] MEDS: Lactobacillus 1 EACH CAP.SPRINK PO SCH (07:59)
[2019-03-22] MEDS: Insulin LISPRO 300 UNITS/3 ML VIAL SQ SCH ×6 (07:59→15:49)
[2019-03-22] MEDS: Gabapentin 300 MG CAPSULE PO SCH ×2 (07:59→15:49)
[2019-03-22] MEDS: Aspirin Enteric Coated 81 MG Tablet PO SCH (07:59)
[2019-03-22] MEDS: Ondansetron 4 MG/2 ML VIAL IVP PRN (12:06)
[2019-03-22 15:14] VITALS: BP 141/82
[2019-03-24 21:02] LABS: ABG Base Excess -4 mEq/L (-2 to 3); ABG HCO3 22 mEq/L (21-27); ABG Oxygen Saturation 93 % (95-98); ABG PCO2 41 mmHg (35-45); ABG PH 7.34 pH Units (7.32-7.45); ABG PO2 71 mmHg (85-104); ABG TCO2 23 mEq/L (20-26)
== END 2019-03-22 18:23 | disposition other institution (70) | DRG 641 ==
LOC: EMEROOPIK 11:55 → INPPIK 11:55
PROVIDERS: ADMIT Family Medicine; ATTEND Family Medicine

== ENCOUNTER 2019-03-22 17:32 | Inpatient (IN) ==
[2019-03-22] MEDS ORDERED: Insulin DETEMIR 100 UNIT/ML per UNIT SQ ONE (21:00)
[2019-03-22] MEDS ORDERED: Insulin DETEMIR 100 UNIT/ML X5UNITS SQ SCH (21:00)
[2019-03-22] MEDS: Gabapentin 300 MG CAPSULE PO SCH (23:08)
[2019-03-22] MEDS: Lactobacillus 1 EACH CAP.SPRINK PO SCH (23:08)
[2019-03-23 07:22] LABS: Basophils % 0.3 %; Eosinophils # 0.2 K/mcL (0.0-0.6); Eosinophils % 2.2 %; Hematocrit 30.2 % (37.5-50.1); Hemoglobin 10.2 g/dL (12.9-16.9); Immature Granulocytes % 0.5 % (0-4); Lymphocytes # 1.5 K/mcL (0.6-4.6); Lymphocytes % 15.3 %; Mean Corpuscular HGB Conc 33.8 g/dL (31.6-35.5); Mean Corpuscular Hemoglobin 30.4 pg (28.0-33.3); Mean Corpuscular Volume 89.9 fL (83.0-100.0); Mean Platelet Volume 10.7 fL (9.4-12.4); Platelet Count 224 K/mcL (140-400); Red Blood Count 3.36 M/mcL (4.19-5.50); Red Cell Distribution Width 12.8 % (11.5-14.5); Segmented Neutrophils % 71.7 %; White Blood Count 9.8 K/mcL (4.3-11.1)
[2019-03-23 08:00] LABS: BUN/Creatinine Ratio 15 (6-26); Blood Urea Nitrogen 11 mg/dL (8-23); Calcium 7.8 mg/dL (8.6-10.3); Carbon Dioxide 26 mEq/L (23-29); Chloride 106 mEq/L (98-107); Glucose 131 mg/dL (70-105); Osmolality,Calculated 287 (280-300); Potassium 3.4 mEq/L (3.5-5.1); Sodium 138 mEq/L (136-145); eGFR For African Americans > 60 (> 60); eGFR For Non-African Americans > 60 (> 60)
[2019-03-23] MEDS: Aspirin Enteric Coated 81 MG Tablet PO SCH (08:18)
[2019-03-23] MEDS: Lactobacillus 1 EACH CAP.SPRINK PO SCH ×2 (08:18→22:47)
[2019-03-23] MEDS: Gabapentin 300 MG CAPSULE PO SCH ×3 (08:18→22:47)
[2019-03-23] MEDS: Insulin LISPRO 300 UNITS/3 ML VIAL SQ SCH ×6 (08:19→16:32)
[2019-03-23] MEDS: Insulin DETEMIR 100 UNIT/ML X5UNITS SQ SCH ×2 (08:19→22:06)
[2019-03-23] MEDS ORDERED: Acetaminophen 325 MG TABLET PO PRN (21:54)
[2019-03-23] MEDS: Ondansetron ODT 4 MG TAB.RAPDIS SL PRN (22:04)
[2019-03-24] MEDS: Insulin LISPRO 300 UNITS/3 ML VIAL SQ SCH ×6 (08:16→16:49)
[2019-03-24] MEDS: Lactobacillus 1 EACH CAP.SPRINK PO SCH ×2 (08:18→20:41)
[2019-03-24] MEDS: Ondansetron ODT 4 MG TAB.RAPDIS SL PRN ×2 (08:18→16:55)
[2019-03-24] MEDS: Gabapentin 300 MG CAPSULE PO SCH ×3 (08:18→20:41)
[2019-03-24] MEDS: Aspirin Enteric Coated 81 MG Tablet PO SCH (08:18)
[2019-03-24] MEDS: Insulin DETEMIR 100 UNIT/ML X5UNITS SQ SCH ×2 (09:00→20:51)
[2019-03-24] MEDS ORDERED: Dextrose Gel 15 GM/37.5 ML TUBE PO PRN ×4 (19:19→19:48)
[2019-03-24] MEDS ORDERED: Dextrose Gel 15 GM/37.5 ML TUBE PO ONE (19:24)
[2019-03-24] MEDS ORDERED: *HR* Dextrose 50 % in Water (Vial) 50 ML VIAL IVP PRN ×2 (19:42→19:48)
[2019-03-24] MEDS ORDERED: 0.9 % Sodium Chloride 500 ML IV ONE (19:43)
[2019-03-24] MEDS ORDERED: *HR* Dextrose 50 % in Water (Vial) 50 ML VIAL ONE (19:46)
[2019-03-24] MEDS ORDERED: D5% in Water 1,000 ML IVC PRN (19:48)
[2019-03-24 19:56] LABS: Hematocrit 36.2 % (37.5-50.1); Hemoglobin 12.3 g/dL (12.9-16.9); Mean Corpuscular Hemoglobin 30.8 pg (28.0-33.3); Mean Corpuscular Volume 90.5 fL (83.0-100.0); Mean Platelet Volume 9.9 fL (9.4-12.4); Platelet Count 336 K/mcL (140-400); Red Cell Distribution Width 12.9 % (11.5-14.5); White Blood Count 13.5 K/mcL (4.3-11.1)
[2019-03-24 20:11] LABS: BUN/Creatinine Ratio 22 (6-26); Blood Urea Nitrogen 20 mg/dL (8-23); Calcium 8.8 mg/dL (8.6-10.3); Carbon Dioxide 26 mEq/L (23-29); Chloride 105 mEq/L (98-107); Glucose 71 mg/dL (70-105); Osmolality,Calculated 291 (280-300); Potassium 3.4 mEq/L (3.5-5.1); Sodium 140 mEq/L (136-145); eGFR For African Americans > 60 (> 60); eGFR For Non-African Americans > 60 (> 60)
[2019-03-24] MEDS ORDERED: Ipratropium/Albuterol Neb 3 ML IH PRN (21:09)
[2019-03-24] MEDS ORDERED: levoFLOXacin 500 MG/100 ML 500 MG/100 ML BAG IVPB SCH (22:00)
[2019-03-24] MEDS ORDERED: 0.9 % Sodium Chloride 1,000 ML IV ONE (23:44)
[2019-03-24] MEDS ORDERED: Potassium Chloride Elixir 20 MEQ/15 ML UDC PO ONE (23:45)
[2019-03-25] MEDS ORDERED: Piperacillin/Tazobactam 3.375 GM in 0.9 % Sodium Chloride Mini Bag 100 ML IVPB SCH
[2019-03-25] MEDS: 0.9 % Sodium Chloride 1,000 ML IVC SCH ×2 (01:39→02:33)
[2019-03-25 02:34] LABS: Hematocrit 32.8 % (37.5-50.1); Hemoglobin 10.9 g/dL (12.9-16.9); Mean Corpuscular HGB Conc 33.2 g/dL (31.6-35.5); Mean Corpuscular Hemoglobin 30.4 pg (28.0-33.3); Mean Corpuscular Volume 91.4 fL (83.0-100.0); Mean Platelet Volume 10.2 fL (9.4-12.4); Platelet Count 245 K/mcL (140-400); Red Blood Count 3.59 M/mcL (4.19-5.50); Red Cell Distribution Width 12.8 % (11.5-14.5); White Blood Count 9.3 K/mcL (4.3-11.1)
[2019-03-25 04:23] LABS: Bilirubin,Urine Negative (Negative); Blood,Urine Negative (Negative); Clarity,Urine Clear (Clear); Color,Urine Yellow (Yellow); Glucose,Urine (UA) 500 mg/dL (Normal); Ketones,Urine Negative (Negative); Leukocyte Esterase,Urine Negative (Negative); Nitrite,Urine Negative (Negative); PH,Urine 5.5 pH Units (5.0-8.0); Protein,Urine 100 mg/dL (Neg-Trace); Specific Gravity,Urine >= 1.030 (1.010-1.025); Urobilinogen,Urine Normal (Normal)
[2019-03-25 04:32] LABS: RBC,Urine 0-3 per hpf (0-3); Squamous Epithelial Cell,Urine Few per lpf (None-Few)
[2019-03-25 04:33] LABS: Amorphous Sediment,Urine Few per hpf (Few); Bacteria,Urine Few per hpf (None-Few)
[2019-03-25 05:39] LABS: BUN/Creatinine Ratio 20 (6-26); Blood Urea Nitrogen 27 mg/dL (8-23); Calcium 7.6 mg/dL (8.6-10.3); Carbon Dioxide 28 mEq/L (23-29); Chloride 106 mEq/L (98-107); Glucose 198 mg/dL (70-105); Osmolality,Calculated 301 (280-300); Potassium 3.6 mEq/L (3.5-5.1); Sodium 140 mEq/L (136-145); eGFR For African Americans > 60 (> 60); eGFR For Non-African Americans 53 (> 60)
[2019-03-25] MEDS ORDERED: 0.9 % Sodium Chloride 500 ML IV ONE (07:30)
[2019-03-25] MEDS ORDERED: 0.9 % Sodium Chloride 1,000 ML IV ONE (07:45)
[2019-03-25] MEDS: Insulin LISPRO 300 UNITS/3 ML VIAL SQ SCH ×2 (08:24)
[2019-03-25] MEDS ORDERED: 0.9 % Sodium Chloride 1,000 ML IV SCH (08:30)
[2019-03-25] MEDS ORDERED: levoFLOXacin 750 MG/150 ML 750 MG/150 ML BAG IVPB SCH (09:00)
[2019-03-25] MEDS ORDERED: Norepinephrine 4 MG in 0.9 % Sodium Chloride 250 ML IVC SCH (09:00)
[2019-03-25 09:17] VITALS: BP 106/68
[2019-03-25 11:20] LABS: Adenovirus Not Detected (Not Detect); Coronavirus 229E Not Detected (Not Detect); Coronavirus HKU1 Not Detected (Not Detect); Coronavirus NL63 Not Detected (Not Detect); Coronavirus OC43 Not Detected (Not Detect); Human Metapneumovirus Not Detected (Not Detect); Human Rhinovirus/Enterovirus Not Detected (Not Detect)
[2019-03-25 11:21] LABS: Bordetella Pertussis Not Detected (Not Detect); Chlamydophila pneumoniae Not Detected (Not Detect); Influenza A Subtype 2009 H1 Not Detected (Not Detect); Influenza B Not Detected (Not Detect); Mycoplasma pneumoniae Not Detected (Not Detect); Parainfluenza Virus 1 Not Detected (Not Detect); Parainfluenza Virus 2 Not Detected (Not Detect); Parainfluenza Virus 3 Not Detected (Not Detect); Parainfluenza Virus 4 Not Detected (Not Detect); Respiratory Syncytial Virus Not Detected (Not Detect)
== END 2019-03-25 10:10 | disposition critical access hospital (66) | DRG 945 ==
LOC: INPPIK 20:05
PROVIDERS: ADMIT Family Medicine; ATTEND Family Medicine

== ENCOUNTER 2019-03-29 12:19 | Inpatient (IN) ==
[2019-03-29] MEDS ORDERED: D5% in Water 1,000 ML IVC PRN (16:12)
[2019-03-29] MEDS ORDERED: Dextrose Gel 15 GM/37.5 ML TUBE PO PRN ×2 (16:12)
[2019-03-29] MEDS ORDERED: *HR* Dextrose 50 % in Water (Vial) 50 ML VIAL IVP PRN (16:12)
[2019-03-29] MEDS: Insulin LISPRO 300 UNITS/3 ML VIAL SQ SCH ×4 (18:34→20:31)
[2019-03-29] MEDS: Gabapentin 300 MG CAPSULE PO SCH (20:31)
[2019-03-29] MEDS: Insulin DETEMIR 100 UNIT/ML X5UNITS SQ SCH (20:31)
[2019-03-29] MEDS: Lactobacillus 1 EACH CAP.SPRINK PO SCH (20:31)
[2019-03-29] MEDS: Potassium Chloride Elixir 20 MEQ/15 ML UDC PO SCH (20:31)
[2019-03-30 07:03] LABS: Basophils % 0.4 %; Eosinophils # 0.3 K/mcL (0.0-0.6); Eosinophils % 3.5 %; Hematocrit 30.7 % (37.5-50.1); Hemoglobin 10.3 g/dL (12.9-16.9); Immature Granulocytes % 0.5 % (0-4); Lymphocytes # 1.5 K/mcL (0.6-4.6); Lymphocytes % 17.7 %; Mean Corpuscular HGB Conc 33.6 g/dL (31.6-35.5); Mean Corpuscular Hemoglobin 30.3 pg (28.0-33.3); Mean Corpuscular Volume 90.3 fL (83.0-100.0); Mean Platelet Volume 9.5 fL (9.4-12.4); Monocytes # 0.9 K/mcL (0.0-1.3); Monocytes % 10.7 %; Neutrophils # 5.6 K/mcL (1.6-8.9); Platelet Count 304 K/mcL (140-400); Red Cell Distribution Width 12.5 % (11.5-14.5); Segmented Neutrophils % 67.2 %; White Blood Count 8.3 K/mcL (4.3-11.1)
[2019-03-30 07:31] LABS: BUN/Creatinine Ratio 21 (6-26); Blood Urea Nitrogen 16 mg/dL (8-23); Calcium 8.3 mg/dL (8.6-10.3); Carbon Dioxide 36 mEq/L (23-29); Chloride 99 mEq/L (98-107); Glucose 116 mg/dL (70-105); Osmolality,Calculated 290 (280-300); Potassium 3.8 mEq/L (3.5-5.1); Sodium 139 mEq/L (136-145); eGFR For African Americans > 60 (> 60); eGFR For Non-African Americans > 60 (> 60)
[2019-03-30] MEDS: Potassium Chloride Elixir 20 MEQ/15 ML UDC PO SCH ×2 (10:45→20:11)
[2019-03-30] MEDS: Lactobacillus 1 EACH CAP.SPRINK PO SCH ×2 (10:46→20:10)
[2019-03-30] MEDS: Gabapentin 300 MG CAPSULE PO SCH ×3 (10:48→20:11)
[2019-03-30] MEDS: Aspirin Enteric Coated 81 MG Tablet PO SCH (10:48)
[2019-03-30] MEDS: Insulin LISPRO 300 UNITS/3 ML VIAL SQ SCH ×7 (11:07→20:11)
[2019-03-30] MEDS: Insulin DETEMIR 100 UNIT/ML X5UNITS SQ SCH ×2 (11:07→20:12)
[2019-03-30] MEDS: cephALEXin 500 MG CAPSULE PO SCH (20:11)
[2019-03-31] MEDS: Aspirin Enteric Coated 81 MG Tablet PO SCH (08:19)
[2019-03-31] MEDS: Potassium Chloride Elixir 20 MEQ/15 ML UDC PO SCH ×2 (08:19→08:20)
[2019-03-31] MEDS: Lactobacillus 1 EACH CAP.SPRINK PO SCH ×2 (08:19→19:55)
[2019-03-31] MEDS: Gabapentin 300 MG CAPSULE PO SCH ×3 (08:19→19:55)
[2019-03-31] MEDS: Insulin DETEMIR 100 UNIT/ML X5UNITS SQ SCH ×2 (08:20→19:57)
[2019-03-31] MEDS: Insulin LISPRO 300 UNITS/3 ML VIAL SQ SCH ×7 (08:21→19:57)
[2019-03-31] MEDS: cephALEXin 500 MG CAPSULE PO SCH ×3 (08:25→19:55)
[2019-04-01] MEDS: Aspirin Enteric Coated 81 MG Tablet PO SCH (09:13)
[2019-04-01] MEDS: Insulin DETEMIR 100 UNIT/ML X5UNITS SQ SCH ×2 (09:14→20:50)
[2019-04-01] MEDS: cephALEXin 500 MG CAPSULE PO SCH ×3 (09:14→20:38)
[2019-04-01] MEDS: Gabapentin 300 MG CAPSULE PO SCH ×3 (09:14→20:38)
[2019-04-01] MEDS: Lactobacillus 1 EACH CAP.SPRINK PO SCH ×2 (09:14→20:38)
[2019-04-01] MEDS: Insulin LISPRO 300 UNITS/3 ML VIAL SQ SCH ×7 (10:22→20:50)
[2019-04-01] MEDS: Nystatin POWDER 30 GM BOTTLE TP SCH ×2 (15:57→20:52)
[2019-04-02] MEDS: Insulin DETEMIR 100 UNIT/ML X5UNITS SQ SCH ×2 (09:27→21:14)
[2019-04-02] MEDS: Insulin LISPRO 300 UNITS/3 ML VIAL SQ SCH ×7 (09:27→21:14)
[2019-04-02] MEDS: cephALEXin 500 MG CAPSULE PO SCH ×3 (09:28→21:01)
[2019-04-02] MEDS: Gabapentin 300 MG CAPSULE PO SCH ×3 (09:28→21:02)
[2019-04-02] MEDS: Aspirin Enteric Coated 81 MG Tablet PO SCH (09:28)
[2019-04-02] MEDS: Lactobacillus 1 EACH CAP.SPRINK PO SCH ×2 (09:28→21:01)
[2019-04-02] MEDS: Nystatin POWDER 30 GM BOTTLE TP SCH ×3 (09:30→21:14)
[2019-04-02] MEDS: Acetaminophen 325 MG TABLET PO PRN (21:01)
[2019-04-03 07:25] LABS: Hematocrit 32.6 % (37.5-50.1); Hemoglobin 10.8 g/dL (12.9-16.9); Mean Corpuscular HGB Conc 33.1 g/dL (31.6-35.5); Mean Corpuscular Hemoglobin 30.4 pg (28.0-33.3); Mean Corpuscular Volume 91.8 fL (83.0-100.0); Mean Platelet Volume 9.7 fL (9.4-12.4); Platelet Count 403 K/mcL (140-400); Red Blood Count 3.55 M/mcL (4.19-5.50); Red Cell Distribution Width 12.2 % (11.5-14.5); White Blood Count 10.2 K/mcL (4.3-11.1)
[2019-04-03 07:59] LABS: BUN/Creatinine Ratio 15 (6-26); Blood Urea Nitrogen 12 mg/dL (8-23); Carbon Dioxide 33 mEq/L (23-29); Chloride 95 mEq/L (98-107); Glucose 328 mg/dL (70-105); Osmolality,Calculated 287 (280-300); Potassium 5.2 mEq/L (3.5-5.1); Sodium 132 mEq/L (136-145); eGFR For African Americans > 60 (> 60); eGFR For Non-African Americans > 60 (> 60)
[2019-04-03] MEDS: Lactobacillus 1 EACH CAP.SPRINK PO SCH ×2 (08:31→21:21)
[2019-04-03] MEDS: Gabapentin 300 MG CAPSULE PO SCH ×3 (08:31→21:21)
[2019-04-03] MEDS: Aspirin Enteric Coated 81 MG Tablet PO SCH (08:31)
[2019-04-03] MEDS: Insulin LISPRO 300 UNITS/3 ML VIAL SQ SCH ×7 (08:37→21:21)
[2019-04-03] MEDS: Insulin DETEMIR 100 UNIT/ML X5UNITS SQ SCH ×2 (08:38→21:22)
[2019-04-03] MEDS: Nystatin POWDER 30 GM BOTTLE TP SCH ×3 (08:39→21:21)
[2019-04-03] MEDS: Ondansetron 4 MG/2 ML VIAL IVP PRN (21:21)
[2019-04-04 06:32] LABS: Hematocrit 31.2 % (37.5-50.1); Hemoglobin 10.2 g/dL (12.9-16.9); Mean Corpuscular HGB Conc 32.7 g/dL (31.6-35.5); Mean Corpuscular Hemoglobin 29.7 pg (28.0-33.3); Mean Platelet Volume 9.5 fL (9.4-12.4); Platelet Count 412 K/mcL (140-400); Red Blood Count 3.43 M/mcL (4.19-5.50); Red Cell Distribution Width 12.5 % (11.5-14.5); White Blood Count 9.8 K/mcL (4.3-11.1)
[2019-04-04 06:58] LABS: BUN/Creatinine Ratio 18 (6-26); Blood Urea Nitrogen 15 mg/dL (8-23); Calcium 7.8 mg/dL (8.6-10.3); Carbon Dioxide 31 mEq/L (23-29); Chloride 97 mEq/L (98-107); Glucose 199 mg/dL (70-105); Osmolality,Calculated 282 (280-300); Potassium 4.6 mEq/L (3.5-5.1); Sodium 133 mEq/L (136-145); eGFR For African Americans > 60 (> 60); eGFR For Non-African Americans > 60 (> 60)
[2019-04-04] MEDS: Aspirin Enteric Coated 81 MG Tablet PO SCH (08:38)
[2019-04-04] MEDS: Gabapentin 300 MG CAPSULE PO SCH ×3 (08:38→20:41)
[2019-04-04] MEDS: Lactobacillus 1 EACH CAP.SPRINK PO SCH ×2 (08:38→20:41)
[2019-04-04] MEDS: Nystatin POWDER 30 GM BOTTLE TP SCH ×3 (08:41→20:41)
[2019-04-04] MEDS: Insulin DETEMIR 100 UNIT/ML X5UNITS SQ SCH ×2 (08:42→20:41)
[2019-04-04] MEDS: Insulin LISPRO 300 UNITS/3 ML VIAL SQ SCH ×7 (08:43→20:41)
[2019-04-04] MEDS: Ondansetron 4 MG/2 ML VIAL IVP PRN (15:33)
[2019-04-04] MEDS ORDERED: 0.9 % Sodium Chloride 1,000 ML IV ONE ×2 (23:37→23:40)
[2019-04-05] MEDS ORDERED: 0.9 % Sodium Chloride 1,000 ML IV ONE (04:17)
[2019-04-05] MEDS ORDERED: 0.9 % Sodium Chloride 1,000 ML IVC SCH (04:30)
[2019-04-05] MEDS: Lactobacillus 1 EACH CAP.SPRINK PO SCH ×2 (08:25→20:10)
[2019-04-05] MEDS: Gabapentin 300 MG CAPSULE PO SCH ×3 (08:25→20:10)
[2019-04-05] MEDS: Insulin LISPRO 300 UNITS/3 ML VIAL SQ SCH ×7 (08:25→20:11)
[2019-04-05] MEDS: Aspirin Enteric Coated 81 MG Tablet PO SCH (08:25)
[2019-04-05] MEDS: Nystatin POWDER 30 GM BOTTLE TP SCH ×3 (08:26→20:11)
[2019-04-05] MEDS: Insulin DETEMIR 100 UNIT/ML X5UNITS SQ SCH (08:28)
[2019-04-05 09:55] LABS: Hematocrit 28.5 % (37.5-50.1); Hemoglobin 9.1 g/dL (12.9-16.9); Mean Corpuscular HGB Conc 31.9 g/dL (31.6-35.5); Mean Corpuscular Hemoglobin 29.4 pg (28.0-33.3); Mean Corpuscular Volume 92.2 fL (83.0-100.0); Mean Platelet Volume 9.3 fL (9.4-12.4); Platelet Count 403 K/mcL (140-400); Red Blood Count 3.09 M/mcL (4.19-5.50); Red Cell Distribution Width 12.5 % (11.5-14.5); White Blood Count 8.5 K/mcL (4.3-11.1)
[2019-04-05 10:10] LABS: BUN/Creatinine Ratio 22 (6-26); Blood Urea Nitrogen 21 mg/dL (8-23); Calcium 7.1 mg/dL (8.6-10.3); Carbon Dioxide 28 mEq/L (23-29); Chloride 102 mEq/L (98-107); Glucose 242 mg/dL (70-105); Osmolality,Calculated 291 (280-300); Potassium 4.3 mEq/L (3.5-5.1); Sodium 135 mEq/L (136-145); eGFR For African Americans > 60 (> 60); eGFR For Non-African Americans > 60 (> 60)
[2019-04-05] MEDS: Acetaminophen 325 MG TABLET PO PRN (20:10)
[2019-04-06] MEDS: Insulin LISPRO 300 UNITS/3 ML VIAL SQ SCH ×7 (07:57→21:10)
[2019-04-06] MEDS: Aspirin Enteric Coated 81 MG Tablet PO SCH (09:19)
[2019-04-06] MEDS: Nystatin POWDER 30 GM BOTTLE TP SCH ×3 (09:20→19:18)
[2019-04-06] MEDS: Lactobacillus 1 EACH CAP.SPRINK PO SCH ×2 (09:20→19:18)
[2019-04-06] MEDS: Gabapentin 300 MG CAPSULE PO SCH ×3 (09:20→19:18)
[2019-04-06] MEDS: Insulin DETEMIR 100 UNIT/ML X5UNITS SQ SCH (09:21)
[2019-04-06] MEDS: Acetaminophen 325 MG TABLET PO PRN (19:18)
[2019-04-07] MEDS: Insulin LISPRO 300 UNITS/3 ML VIAL SQ SCH ×7 (07:39→19:59)
[2019-04-07] MEDS: Lactobacillus 1 EACH CAP.SPRINK PO SCH ×2 (08:43→19:59)
[2019-04-07] MEDS: Aspirin Enteric Coated 81 MG Tablet PO SCH (08:43)
[2019-04-07] MEDS: Gabapentin 300 MG CAPSULE PO SCH ×3 (08:44→19:59)
[2019-04-07] MEDS: Insulin DETEMIR 100 UNIT/ML X5UNITS SQ SCH (08:45)
[2019-04-07] MEDS: Nystatin POWDER 30 GM BOTTLE TP SCH ×3 (08:46→20:00)
[2019-04-08] MEDS: Acetaminophen 325 MG TABLET PO PRN (06:18)
[2019-04-08] MEDS: Insulin LISPRO 300 UNITS/3 ML VIAL SQ SCH ×7 (08:58→20:44)
[2019-04-08] MEDS: Insulin DETEMIR 100 UNIT/ML X5UNITS SQ SCH (09:10)
[2019-04-08] MEDS: Aspirin Enteric Coated 81 MG Tablet PO SCH (09:12)
[2019-04-08] MEDS: Lactobacillus 1 EACH CAP.SPRINK PO SCH ×2 (09:12→20:44)
[2019-04-08] MEDS: Gabapentin 300 MG CAPSULE PO SCH ×3 (09:12→20:43)
[2019-04-08] MEDS: Nystatin POWDER 30 GM BOTTLE TP SCH ×3 (11:39→20:45)
[2019-04-09] MEDS: Gabapentin 300 MG CAPSULE PO SCH ×3 (09:00→21:05)
[2019-04-09] MEDS: Lactobacillus 1 EACH CAP.SPRINK PO SCH ×2 (09:00→20:38)
[2019-04-09] MEDS: Aspirin Enteric Coated 81 MG Tablet PO SCH (09:00)
[2019-04-09] MEDS: Insulin LISPRO 300 UNITS/3 ML VIAL SQ SCH ×7 (09:01→20:39)
[2019-04-09] MEDS: Insulin DETEMIR 100 UNIT/ML X5UNITS SQ SCH ×2 (11:41→12:29)
[2019-04-09] MEDS: Nystatin POWDER 30 GM BOTTLE TP SCH ×3 (11:41→21:06)
[2019-04-09] MEDS: Acetaminophen 325 MG TABLET PO PRN (20:38)
[2019-04-10] MEDS: Insulin LISPRO 300 UNITS/3 ML VIAL SQ SCH ×7 (08:32→22:02)
[2019-04-10] MEDS: Aspirin Enteric Coated 81 MG Tablet PO SCH (08:33)
[2019-04-10] MEDS: Gabapentin 300 MG CAPSULE PO SCH ×3 (08:33→22:02)
[2019-04-10] MEDS: Nystatin POWDER 30 GM BOTTLE TP SCH ×3 (08:34→22:59)
[2019-04-10] MEDS: Insulin DETEMIR 100 UNIT/ML X5UNITS SQ SCH (08:34)
[2019-04-10] MEDS: Lactobacillus 1 EACH CAP.SPRINK PO SCH ×2 (08:34→22:02)
[2019-04-10] MEDS: Acetaminophen 325 MG TABLET PO PRN (08:35)
[2019-04-11] MEDS: Insulin LISPRO 300 UNITS/3 ML VIAL SQ SCH ×7 (09:25→22:09)
[2019-04-11] MEDS: Gabapentin 300 MG CAPSULE PO SCH ×3 (09:26→22:08)
[2019-04-11] MEDS: Nystatin POWDER 30 GM BOTTLE TP SCH ×3 (09:26→23:54)
[2019-04-11] MEDS: Aspirin Enteric Coated 81 MG Tablet PO SCH (09:26)
[2019-04-11] MEDS: Lactobacillus 1 EACH CAP.SPRINK PO SCH ×2 (09:26→22:08)
[2019-04-11] MEDS: Insulin DETEMIR 100 UNIT/ML X5UNITS SQ SCH (09:26)
[2019-04-12] MEDS: Insulin DETEMIR 100 UNIT/ML X5UNITS SQ SCH (09:55)
[2019-04-12] MEDS: Lactobacillus 1 EACH CAP.SPRINK PO SCH ×2 (09:55→21:03)
[2019-04-12] MEDS: Aspirin Enteric Coated 81 MG Tablet PO SCH (09:55)
[2019-04-12] MEDS: Gabapentin 300 MG CAPSULE PO SCH ×3 (09:55→21:03)
[2019-04-12] MEDS: Insulin LISPRO 300 UNITS/3 ML VIAL SQ SCH ×7 (09:56→21:04)
[2019-04-12] MEDS: Nystatin POWDER 30 GM BOTTLE TP SCH ×3 (13:12→21:18)
[2019-04-13] MEDS: Aspirin Enteric Coated 81 MG Tablet PO SCH (08:27)
[2019-04-13] MEDS: Gabapentin 300 MG CAPSULE PO SCH ×3 (08:27→20:27)
[2019-04-13] MEDS: Lactobacillus 1 EACH CAP.SPRINK PO SCH ×2 (08:27→20:27)
[2019-04-13] MEDS: Insulin DETEMIR 100 UNIT/ML X5UNITS SQ SCH (08:28)
[2019-04-13] MEDS: Nystatin POWDER 30 GM BOTTLE TP SCH ×3 (08:28→20:28)
[2019-04-13] MEDS: Insulin LISPRO 300 UNITS/3 ML VIAL SQ SCH ×7 (08:28→20:28)
[2019-04-13] MEDS: Acetaminophen 325 MG TABLET PO PRN (17:00)
[2019-04-14 08:12] VITALS: BP 90/59
[2019-04-14] MEDS: Insulin LISPRO 300 UNITS/3 ML VIAL SQ SCH ×4 (08:15→11:26)
[2019-04-14] MEDS: Insulin DETEMIR 100 UNIT/ML X5UNITS SQ SCH (08:15)
[2019-04-14] MEDS: Gabapentin 300 MG CAPSULE PO SCH (08:17)
[2019-04-14] MEDS: Aspirin Enteric Coated 81 MG Tablet PO SCH (08:17)
[2019-04-14] MEDS: Lactobacillus 1 EACH CAP.SPRINK PO SCH (08:17)
[2019-04-14] MEDS: Acetaminophen 325 MG TABLET PO PRN (10:35)
[2019-04-14] MEDS: Nystatin POWDER 30 GM BOTTLE TP SCH (10:38)
== END 2019-04-14 16:25 | disposition home or self-care (01) | DRG 945 ==
LOC: INPPIK 17:48
PROVIDERS: ADMIT Family Medicine; ATTEND Family Medicine